=== PATIENT | male | born 1935 | race Asian ===

== ENCOUNTER → 2017-03-26 | Outpatient (CLI) | payer MEDICARE, MEDICAID ==
--- NOTE | 2017-03-26 11:31 | RADIOLOGY REPORT (SQ) ---
EXAM DESCRIPTION: CHEST PA/LAT COMPLETED DATE/TIME: 03/26/2017 11:05 am REASON FOR STUDY: HTN COMPARISON: 12/04/2015, 11/16/2010 NUMBER OF VIEWS: Two view. TECHNIQUE: Frontal and lateral radiographic views of the chest acquired. LIMITATIONS: None. FINDINGS: LUNGS AND PLEURA: Minimal haziness lateral aspect of the left lung base on the PA project ion. Not identified on the lateral. Compromised by poor aspect effort. Cannot exclude minimal infi ltrate. MEDIASTINUM AND HILAR STRUCTURES: No masses or contour abnormalities. HEART AND VASCULATURE: Heart normal size. No evidence for failure. BONY STRUCTURES: No acute findings. HARDWARE: None. OTHER: No other significant finding. IMPRESSION: Minimal haziness lateral aspect the left base on the PA projection. See above shukri hong. Repeat PA hand deeper inspiration may be helpful if clinically indicated. TECHNICAL DOCUMENTATION: JOB ID: [id number] [employer]- All Rights Reserved
== END ==
LOC: RAD 10:40
PROVIDERS: ATTEND Internal Medicine Nephrology
DX: I13.10 Hypertensive heart and chronic kidney disease without heart failure, with stage 1 through stage 4 chronic kidney disease, or unspecified chronic kidney disease (principal); N18.3 Chronic kidney disease, stage 3 (moderate); M10.9 Gout, unspecified
CPT/HCPCS: 71020

== ENCOUNTER → 2017-04-04 | Outpatient (CLI) | payer MEDICARE, MEDICAID ==
--- NOTE | 2017-04-04 10:21 | RADIOLOGY REPORT (SQ) ---
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 TECHNIQUE: Realtime and static grayscale images acquired. Selected color Doppler, velocities and spe ctral images recorded. LIMITATIONS: None. FINDINGS: RIGHT KIDNEY: RENAL ARTERY VELOCITIES: 59 cm/sec. Segmental artery velocity 28 cm/sec. RENAL VEIN: Color doppler flow present, patent. VELOCITY RATIO: 0.52. Normal waveforms. KIDNEY: 9 cm. Increased cortical echogenicity. 1.4 cm cyst. LEFT KIDNEY: RENAL ARTERY VELOCITIES: 34 cm/sec. Segmental artery velocity 39 cm/sec. RENAL VEIN: Color doppler flow present, patent. VELOCITY RATIO: 0.3. Normal waveforms. KIDNEY: 9.4 cm. Increased cortical echogenicity. 1.7 cm cyst. BLADDER: Normal. OTHER: No other significant finding. IMPRESSION: 1. NO DOPPLER EVIDENCE OF HEMODYNAMICALLY SIGNIFICANT RENAL ARTERY STENOSIS. 2. INCREASED CORTICAL ECHOGENICITY OF THE KIDNEYS CONSISTENT WITH CHRONIC RENAL DISEASE. CORTICAL CY STS IN BOTH KIDNEYS. COMMENT: NORMAL RENAL ARTERY/AORTA VELOCITY RATIO IS LESS THAN OR EQUAL TO 3.5. TECHNICAL DOCUMENTATION: JOB ID: [id number]- All Rights Reserved
[2017-04-04 10:43] LABS: ANION GAP 11 (5-19); BLOOD UREA NITROGEN 30 mg/dL (7-20); CALCIUM 10.2 mg/dL (8.4-10.2); CARBON DIOXIDE 33 mmol/L (22-30); CHLORIDE 95 mmol/L (98-107); CREATININE RESULT 1.57 mg/dL (0.52-1.25); GLUCOSE 144 mg/dL (75-110); MAGNESIUM 2.1 mg/dL (1.6-2.3); POTASSIUM 4.6 mmol/L (3.6-5.0); SODIUM 139.1 mmol/L (137-145)
== END ==
LOC: RAD 09:23
PROVIDERS: ATTEND Internal Medicine Nephrology
DX: I12.9 Hypertensive chronic kidney disease with stage 1 through stage 4 chronic kidney disease, or unspecified chronic kidney disease (principal); N18.3 Chronic kidney disease, stage 3 (moderate); I50.9 Heart failure, unspecified; E11.9 Type 2 diabetes mellitus without complications; M10.00 Idiopathic gout, unspecified site
CPT/HCPCS: 36415; 80048; 83735; 93976

== ENCOUNTER → 2017-12-25 | Outpatient (CLI) | payer MEDICARE, MEDICAID ==
--- NOTE | 2017-12-25 13:52 | RADIOLOGY REPORT (SQ) ---
EXAM DESCRIPTION: CHEST PA/LATERAL COMPLETED DATE/TIME: 12/25/2017 12:27 pm REASON FOR STUDY: SOB COMPARISON: Two-view chest 03/16/2017, 12/04/2015, 11/16/2010 EXAM PARAMETERS: NUMBER OF VIEWS: two views TECHNIQUE: Digital Frontal and Lateral radiographic views of the chest acquired. RADIATION DOSE: NA LIMITATIONS: none FINDINGS: LUNGS AND PLEURA: Unchanged epicardial fat pad right medial cardiophrenic angle. No acute infiltrates. No pleural effusion. No pneumothorax. MEDIASTINUM AND HILAR STRUCTURES: No masses or contour abnormalities. HEART AND VASCULAR STRUCTURES: Heart normal size. No evidence for failure. BONES: No acute findings. HARDWARE: None in the chest. OTHER: No other significant finding. IMPRESSION: No acute findings TECHNICAL DOCUMENTATION: JOB ID: [id number] [employer]- All Rights Reserved Reading location - IP/workstation name: [email or web address]
== END ==
LOC: OD 11:11
PROVIDERS: ATTEND Internal Medicine Nephrology
DX: E11.22 Type 2 diabetes mellitus with diabetic chronic kidney disease (principal); I13.0 Hypertensive heart and chronic kidney disease with heart failure and stage 1 through stage 4 chronic kidney disease, or unspecified chronic kidney disease; N18.3 Chronic kidney disease, stage 3 (moderate); I50.9 Heart failure, unspecified; M10.00 Idiopathic gout, unspecified site
CPT/HCPCS: 71046

== ENCOUNTER 2018-08-14 08:33 | Inpatient (IN) | payer MEDICARE, MEDICAID ==
[2018-08-14 09:07] LABS: ABSOLUTE BASOPHILS # (AUTO) 0.1 10^3/uL (0.0-0.2); ABSOLUTE MONOCYTES (AUTO) 0.7 10^3/uL (0.1-1.4); ABSOLUTE NEUT (AUTO) 12.2 10^3/uL (1.7-8.2); BASOPHILS % (AUTO) 0.5 % (0-2); HEMATOCRIT 31.6 % (37.9-51.0); HEMOGLOBIN 10.5 g/dL (13.5-17.0); LYMPHOCYTES % (AUTO) 13.2 % (13-45); MEAN CORPUSCULAR HEMOGLOBIN 32.2 pg (27.0-33.4); MEAN CORPUSCULAR HGB CONC 33.1 g/dL (32.0-36.0); MEAN CORPUSCULAR VOLUME 97 fl (80-97); MONOCYTES % (AUTO) 4.8 % (3-13); PLATELET COUNT 250 10^3/uL (150-450); RED BLOOD COUNT 3.26 10^6/uL (4.35-5.55); RED CELL DISTRIBUTION WIDTH 12.6 % (11.5-14.0); SEGMENTED NEUTROPHILS % (AUTO) 81.5 % (42-78); TOTAL CELLS COUNTED % (AUTO) 100 %
[2018-08-14 09:18] LABS: ALANINE AMINOTRANSFERASE 19 U/L (21-72); ALBUMIN 3.6 g/dL (3.5-5.0); ALKALINE PHOSPHATASE 74 U/L (38-126); ANION GAP 14 (5-19); ASPARTATE AMINO TRANSFERASE 26 U/L (17-59); BILIRUBIN,DIRECT 0.1 mg/dL (0.0-0.4); BILIRUBIN,TOTAL 0.4 mg/dL (0.2-1.3); BLOOD UREA NITROGEN 96 mg/dL (7-20); CALCIUM 9.2 mg/dL (8.4-10.2); CARBON DIOXIDE 21 mmol/L (22-30); CHLORIDE 100 mmol/L (98-107); POTASSIUM 5.7 mmol/L (3.6-5.0); SODIUM 135.2 mmol/L (137-145); TOTAL PROTEIN 6.1 g/dL (6.3-8.2)
[2018-08-14 09:46] LABS: GLUCOSE 556 mg/dL (75-110)
--- NOTE | 2018-08-14 09:51 | ER Document Report ---
ED Blood Sugar Problem - General Chief Complaint: High Blood Sugar Stated Complaint: BLOOD SUGAR ISSUES Time Seen by Provider: 08/14/18 09:43 Mode of Arrival: Medic Information source: Patient, Relative Notes: Patient is an 83-year-old male who presents to the emergency department via EMS for complaints of shortness of breath and elevated blood glucose at home. Patient's daughter is at bedside who is his caregiver who states that over the last 2 days patient has had elevated blood glucose levels. She states his glucose levels usually run in the 1-200 range. She states that last night his glucose level was 300. This morning his glucose was almost 500 and he began having blood in his stools that she describes as a dark as well as a episode of emesis with dark red blood in it as well. Prior to this patient had not been ill and had not been running any fevers or complaining of any abdominal pain. She does report that patient seems to have some abdominal distention. Patient has past medical history of insulin-dependent diabetes, chronic kidney disease and hypertension. TRAVEL OUTSIDE OF THE [place] IN LAST 30 DAYS: No - Related Data Allergies/Adverse Reactions: Penicillins Allergy (Severe, Verified 08/14/18 08:49) Anaphylaxis Past Medical History - General Information source: Patient - Social History Smoking Status: Never Smoker Chew tobacco use (# tins/day): No Frequency of alcohol use: None Drug Abuse: None Family History: Reviewed & Not Pertinent Patient has suicidal ideation: No Patient has homicidal ideation: No - Past Medical History Cardiac Medical History: Reports: Hx Congestive Heart Failure, Hx Coronary Artery Disease, Hx Hypercholesterolemia, Hx Hypertension Denies: Hx Heart Attack Pulmonary Medical History: Denies: Hx Asthma, Hx Bronchitis, Hx COPD, Hx Pneumonia, Hx Tuberculosis Neurological Medical History: Denies: Hx Cerebrovascular Accident, Hx Seizures Endocrine Medical History: Reports: Hx Diabetes Mellitus Type 2 Renal/ Medical History: Reports: Hx Renal Insufficiency. Denies: Hx Peritoneal Dialysis Musculoskeletal Medical History: 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, and fingers, Reports Hx Gout Psychiatric Medical History: Denies: Hx Depression - Immunizations Hx Diphtheria, Pertussis, Tetanus Vaccination: Yes Hx Pneumococcal Vaccination: 05/08/13 Review of Systems - Review of Systems Constitutional: Other - Polydipsia EENT: No symptoms reported Cardiovascular: No symptoms reported Respiratory: Short of breath Gastrointestinal: Abdomen distended, Diarrhea, Nausea, Vomiting, Blood in vomit, Black stools Genitourinary: No symptoms reported Male Genitourinary: No symptoms reported Musculoskeletal: No symptoms reported Skin: No symptoms reported Hematologic/Lymphatic: No symptoms reported Neurological/Psychological: No symptoms reported Physical Exam - Vital signs Vitals: Temp Resp Pulse Ox 97.8 F 18 97 08/14/18 08:44 08/14/18 08:44 08/14/18 08:44 - Notes Notes: PHYSICAL EXAMINATION: GENERAL: Well-appearing, well-nourished and in no acute distress. HEAD: Atraumatic, normocephalic. EYES: Pupils equal round and reactive to light, extraocular movements intact, sclera anicteric, conjunctiva are normal. ENT: Nares patent, oropharynx clear without exudates. Moist mucous membranes. NECK: Normal range of motion, supple without lymphadenopathy LUNGS: Breath sounds clear to auscultation bilaterally and equal. No wheezes rales or rhonchi. HEART: Regular rate and rhythm without murmurs ABDOMEN: Soft, nontender, mildly distended abdomen. No guarding, no rebound. No masses appreciated. Musculoskeletal: Normal range of motion, no pitting or edema. No cyanosis. NEUROLOGICAL: Cranial nerves grossly intact. Normal speech. Normal sensory, motor exams PSYCH: Normal mood, normal affect. SKIN: Warm, Dry, normal turgor, no rashes or lesions noted. Course - Re-evaluation Re-evalutation: Patient presented to the emergency room with complaints of shortness of breath. No shortness of breath noted, patient normotensive, no tachycardia, no hypoxia and no tachypnea noted. Patient is alert, oriented and in no acute distress. Labs were obtained. Initial blood glucose glucose was 556 however no evidence of DKA with a normal anion gap. VBG was also obtained which is within normal limits. Patient does have elevated BUN and creatinine, creatinine is 2.47. Patient does have history of stage III kidney disease however this creatinine is elevated for patient. CBC reveals a white blood count of 15,000 without any evidence of bandemia. Likely secondary to multiple episodes of vomiting and diarrhea. Acute abdominal series was obtained to evaluate for cause of shortness of breath as well as to evaluate for any perforation or retained stool. Acute abdominal series was found to be within normal limits with no acute findings. Patient was started on a Protonix bolus of 80 mg followed by Protonix drip of 8 mg/h. He was also given 5 mg of IV insulin. He did have a elevated potassium level of 5.7, EKG was obtained and is without peaked T waves. Patient has not had any episodes of nausea, vomiting or diarrhea while in the emergency department he is Hemoccult positive. This test was performed at the bedside and appeared to be melena. I did discuss this case with my attending physician, Dr. Bob. Patient continues to be stable while in the emergency department and all his vital signs have been within normal ranges. I did call the hospitalist to inquire about admission, Dr. Herrera accepts patient for admission. Patient and family members were updated and are in agreement with the plan of care. - Vital Signs Vital signs: Temp Pulse Resp BP Pulse Ox 97.8 F 21 H 125/57 L 97 08/14/18 08:44 08/14/18 19:06 08/14/18 19:06 08/14/18 19:06 - Laboratory Result Diagrams: 08/14/18 08:07 08/14/18 20:35 Laboratory results interpreted by me: 08/14/18 08/14/18 08/14/18 08:07 08:07 11:44 WBC 15.0 H RBC 3.26 L Hgb 10.5 L Hct 31.6 L Seg Neutrophils % 81.5 H Absolute Neutrophils 12.2 H Sodium 135.2 L Potassium 5.7 H Carbon Dioxide 21 L BUN 96 H Creatinine 2.47 H Est GFR ( Amer) 30 L Est GFR (Non-Af Amer) 25 L Glucose 556 H* POC Glucose ALT 19 L Total Protein 6.1 L Urine Glucose (UA) >=500 H 08/14/18 12:04 WBC RBC Hgb Hct Seg Neutrophils % Absolute Neutrophils Sodium Potassium Carbon Dioxide BUN Creatinine Est GFR ( Amer) Est GFR (Non-Af Amer) Glucose POC Glucose 484 H* ALT Total Protein Urine Glucose (UA) Discharge - Discharge Clinical Impression: Hyperglycemia, Melena, Hyperkalemia, Elevated serum creatinine Hematemesis/vomiting blood Qualifiers: Nausea presence: unspecified Qualified Code(s): K92.0 - Hematemesis Condition: Stable Disposition: ADMITTED INPATIENT Admitting Provider: Kandaceist - lizette Unit Admitted: Telemetry
[2018-08-14] MEDS ORDERED: NORMAL SALINE 1000 ML 1,000 ML IV ONE ×2 (10:25→10:38)
[2018-08-14] MEDS ORDERED: PANTOPRAZOLE SODIUM 40 MG VIAL IV ONE (10:37)
[2018-08-14] MEDS ORDERED: PANTOPRAZOLE SODIUM 40 MG VIAL IV PRN (10:37)
[2018-08-14] MEDS ORDERED: INSULIN REG, HUMAN 100 UNIT/ML 3 ML VIAL (PYX) IV ONE (10:37)
[2018-08-14 11:09] LABS: VENOUS BLOOD BASE EXCESS -5.2 mmol/L; VENOUS BLOOD HCO3 20.4 mmol/L (20-32); VENOUS BLOOD PH 7.33 (7.30-7.42)
--- NOTE | 2018-08-14 11:11 | EKG REPORT ---
SEVERITY:- BORDERLINE ECG - SINUS TACHYCARDIA VENTRICULAR PREMATURE COMPLEX BORDERLINE PROLONGED QT INTERVAL : Confirmed by: Rajinder Ritter 14-Aug-2018 11:10:46
--- NOTE | 2018-08-14 11:27 | RADIOLOGY REPORT (SQ) ---
EXAM DESCRIPTION: ACUTE ABDOMEN SERIES COMPLETED DATE/TIME: 08/14/2018 11:00 am REASON FOR STUDY: shortness of breath, abd distention COMPARISON: Chest films 12/25/2017, 03/26/2017 CT abdomen pelvis 12/29/2013 NUMBER OF VIEWS: Three views. TECHNIQUE: Frontal chest, supine abdomen and upright abdomen radiographic images acquired. LIMITATIONS: None. FINDINGS: CHEST: Lungs clear of infiltrates. Cardiac silhouette size, elzbieta unremarkable. FREE AIR: None. No abnormal gas collections. BOWEL GAS PATTERN: Nonobstructive pattern. No dilated loops or air fluid levels. CALCIFICATIONS: No suspicious calcifications. HARDWARE: None in the abdomen. SOFT TISSUES: No gross mass or suggestion of organomegaly. BONES: No acute fracture. No worrisome bone lesions. OTHER: No other significant finding. IMPRESSION: NO RADIOGRAPHIC EVIDENCE FOR ACUTE ABDOMINAL DISEASE. TECHNICAL DOCUMENTATION: JOB ID: [id number] [employer]- All Rights Reserved Reading location - IP/workstation name: [email or web address]
[2018-08-14 12:03] LABS: APPEARANCE,URINE CLEAR; BILIRUBIN,URINE NEGATIVE (NEGATIVE); COLOR,URINE STRAW; GLUCOSE, URINE >=500 mg/dL (NEGATIVE); KETONES,URINE NEGATIVE (NEGATIVE); LEUKOCYTE ESTERASE,URINE NEGATIVE (NEGATIVE); NITRITE,URINE NEGATIVE (NEGATIVE); PROTEIN,URINE NEGATIVE (NEGATIVE); URINE SPECIFIC GRAVITY 1.015; UROBILINOGEN,URINE NEGATIVE mg/dL (<2.0)
[2018-08-14] MEDS ORDERED: DEXTROSE 50%-WATER 25 GM/50 ML DISP.SYRIN IV PRN ×4 (14:03→14:29)
[2018-08-14] MEDS ORDERED: NORMAL SALINE 100 ML with INSULIN REGULAR, HUMAN 100 UNIT IV PRN ×2 (14:03)
[2018-08-14] MEDS ORDERED: GLUCAGON,HUMAN RECOMB 1 MG INJ IM PRN (14:03)
[2018-08-14] MEDS ORDERED: DEXTROSE 40% GEL 15 GM TUBE PO PRN ×4 (14:03→14:29)
[2018-08-14] MEDS ORDERED: ALBUTEROL SULFATE 0.083% NEB 2.5 MG/3 ML AMPUL NEB PRN (14:05)
[2018-08-14] MEDS ORDERED: NORMAL SALINE 1000 ML 1,000 ML IV PRN (14:29)
[2018-08-14] MEDS ORDERED: ACETAMINOPHEN 325 MG TABLET PO PRN (14:29)
[2018-08-14] MEDS ORDERED: ONDANSETRON HCL INJ/PF 4 MG/2 ML SDV IV PRN (14:29)
[2018-08-14] MEDS ORDERED: GLUCAGON,HUMAN RECOMB 1 MG INJ SUBCUT PRN (14:29)
[2018-08-14] MEDS ORDERED: CALCIUM GLUCONATE 1000 MG/10 ML INJ IV ONE (14:30)
[2018-08-14] MEDS: IPRATROPIUM/ALBUTEROL 0.5-2.5 MG/3 ML AMPUL NEB PRN ×2 (14:59→15:53)
[2018-08-14 15:21] LABS: INTERNATIONAL RATION (INR) 1.01; PROTHROMBIN TIME 13.8 SEC (11.4-15.4)
[2018-08-14] MEDS ORDERED: PATIROMER 8.4 GM SUSP PACKET PO SCH (17:00)
[2018-08-14] MEDS ORDERED: ALPRAZOLAM 0.25 MG TABLET PO PRN (18:32)
[2018-08-14] MEDS ORDERED: HYDRALAZINE HCL INJ/PF 20 MG/1 ML SDV IV PRN (18:34)
--- NOTE | 2018-08-14 18:50 | PDOC H&P ---
History of Present Illness Admission Date/PCP: 08/14/18 12:21 RICCI LAM MD History of Present Illness: JACKIE ESCOBEDO is a 83 year old male with a history of hypertension, diabetes, CHF, CKD, presented to ED complaining of sore breath, nausea, hematemesis, and melena. Patient said he was doing fine yesterday but overnight he was not feeling very well and has checked checked his blood pressure which was low and checked his blood glucose level which was 387. 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 He denies any chest pain, abdominal pain, urinary symptoms, recent travel, sick contacts. Today he ate at [employer] where he frequently goes. ED his blood glucose level was 556, anion gap within normal limits, creatinine 2.47, WBC of 15,000 without any bandemia. A per HPI. As per HPI as per HPI KUB was done without any radiographic evidence of acute disease. Past Medical History Cardiac Medical History: Reports: Congestive Heart Failure, Coronary Artery Disease, Hyperlipidema, Hypertension Denies: Myocardial Infarction Pulmonary Medical History: Denies: Asthma, Bronchitis, Chronic Obstructive Pulmonary Disease (COPD), Pneumonia, Tuberculosis Neurological Medical History: Denies: Seizures Endocrine Medical History: Reports: Diabetes Mellitus Type 2 Musculoskeltal Medical History: Reports: Arthritis - B/L hands, and fingers, Gout Psychiatric Medical History: Denies: Depression Hematology: Denies: Anemia Social History Smoking Status: Never Smoker Frequency of Alcohol Use: None Hx Recreational Drug Use: No Hx Prescription Drug Abuse: No Family History Family History: Reviewed & Not Pertinent Parental Family History Reviewed: Yes Children Family History Reviewed: Yes Sibling(s) Family History Reviewed.: Yes Medication/Allergy Home Medications: Alprazolam [Xanax 0.25 mg Tablet] 0.25 mg PO Q12HP PRN 08/14/18 Chlorthalidone [Hygroton 25 mg Tablet] 25 mg PO MOWEFR@1000 08/14/18 Cholecalciferol (Vitamin D3) [D3-2000] 2,000 unit PO DAILY 08/14/18 Clonidine HCl [Catapres 0.1 mg Tablet] 0.1 mg PO Q8 08/14/18 Febuxostat [Uloric 40 mg Tablet] 40 mg PO DAILY 08/14/18 Fexofenadine HCl [Allergy Relief] 180 mg PO DAILY 08/14/18 Flunisolide [Nasarel] 2 spray NASL BID 08/14/18 Furosemide [Lasix 40 mg Tablet] 40 mg PO DAILY 08/14/18 Glimepiride [Amaryl] 2 mg PO QAM 08/14/18 Hydrocortisone/Pramoxine [Proctofoam-Hc 1%-1% Foam] 1 applic VT DAILYP PRN 08/14/18 Insulin Degludec [Tresiba Flextouch U-200] 20 unit SQ QHS 08/14/18 Isosorbide Mononitrate [Imdur 30 mg Tablet.er] 30 mg PO DAILY 08/14/18 Levothyroxine Sodium [Synthroid 0.025 mg Tablet] 0.025 mg PO Q6AM 08/14/18 Lisinopril [Prinivil 40 mg Tablet] 40 mg PO Q12 08/14/18 Multivitamin [Tab-A-Marlys (Multiple Vitamin) Tablet] 1 tab PO DAILY 08/14/18 Mupirocin [Bactroban 2% Ointment 22 gm] 1 applic TOP TID 08/14/18 Potassium Chloride [Klor-Con 10 Meq Capsule ER] 10 meq PO DAILY 08/14/18 Simvastatin [Zocor 20 mg Tablet] 20 mg PO QHS 08/14/18 Sitagliptin Phosphate [Januvia] 100 mg PO DAILY 08/14/18 Spironolactone [Aldactone 25 mg Tablet] 25 mg PO DAILY 08/14/18 Allergies/Adverse Reactions: Penicillins Allergy (Severe, Verified 08/14/18 08:49) Anaphylaxis Review of Systems Review of Systems: Per HPI Physical Exam Vital Signs: Temp Pulse Resp BP Pulse Ox 97.8 F 21 H 127/50 H 98 08/14/18 08:44 08/14/18 13:31 08/14/18 13:31 08/14/18 13:31 Intake & Output 08/13/18 08/14/18 08/15/18 06:59 06:59 06:59 Intake Total 1007 Output Total 500 Balance 507 Weight 68.039 kg General appearance: PRESENT: no acute distress, well-developed, well-nourished Respiratory exam: PRESENT: clear to auscultation choco. ABSENT: rales, rhonchi, wheezes Cardiovascular exam: PRESENT: RRR. ABSENT: diastolic murmur, rubs, systolic murmur GI/Abdominal exam: PRESENT: normal bowel sounds, soft. ABSENT: distended, guarding, mass, organolmegaly, rebound, tenderness Extremities exam: PRESENT: full ROM. ABSENT: calf tenderness, clubbing, pedal edema Neurological exam: PRESENT: alert, awake, oriented to person, oriented to place, oriented to time, oriented to situation, CN II-XII grossly intact. ABSENT: motor sensory deficit Results Laboratory Results: 08/14/18 08:07 08/14/18 08:07 08/14/18 08/14/18 08/14/18 08:07 08:07 10:48 WBC 15.0 H RBC 3.26 L Hgb 10.5 L Hct 31.6 L MCV 97 MCH 32.2 MCHC 33.1 RDW 12.6 Plt Count 250 Seg Neutrophils % 81.5 H Lymphocytes % 13.2 Monocytes % 4.8 Eosinophils % 0.0 Basophils % 0.5 Absolute Neutrophils 12.2 H Absolute Lymphocytes 2.0 Absolute Monocytes 0.7 Absolute Eosinophils 0.0 Absolute Basophils 0.1 VBG pH 7.33 VBG pCO2 40.0 VBG HCO3 20.4 VBG Base Excess -5.2 Sodium 135.2 L Potassium 5.7 H Chloride 100 Carbon Dioxide 21 L Anion Gap 14 BUN 96 H Creatinine 2.47 H Est GFR ( Amer) 30 L Est GFR (Non-Af Amer) 25 L Glucose 556 H* Calcium 9.2 Total Bilirubin 0.4 AST 26 ALT 19 L Alkaline Phosphatase 74 Total Protein 6.1 L Albumin 3.6 Urine Color Urine Appearance Urine pH Ur Specific [place] Urine Protein Urine Glucose (UA) Urine Ketones Urine Blood Urine Nitrite Ur Leukocyte Esterase Urine WBC (Auto) Urine RBC (Auto) Blood Type Antibody Screen 08/14/18 08/14/18 10:48 11:44 WBC RBC Hgb Hct MCV MCH MCHC RDW Plt Count Seg Neutrophils % Lymphocytes % Monocytes % Eosinophils % Basophils % Absolute Neutrophils Absolute Lymphocytes Absolute Monocytes Absolute Eosinophils Absolute Basophils VBG pH VBG pCO2 VBG HCO3 VBG Base Excess Sodium Potassium Chloride Carbon Dioxide Anion Gap BUN Creatinine Est GFR ( Amer) Est GFR (Non-Af Amer) Glucose Calcium Total Bilirubin AST ALT Alkaline Phosphatase Total Protein Albumin Urine Color STRAW Urine Appearance CLEAR Urine pH 5.0 Ur Specific [place] 1.015 Urine Protein NEGATIVE Urine Glucose (UA) >=500 H Urine Ketones NEGATIVE Urine Blood NEGATIVE Urine Nitrite NEGATIVE Ur Leukocyte Esterase NEGATIVE Urine WBC (Auto) 1 Urine RBC (Auto) 0 Blood Type O POSITIVE Antibody Screen NEGATIVE Impressions: Acute Abdomen Series 08/14/18 10:08 IMPRESSION: NO RADIOGRAPHIC EVIDENCE FOR ACUTE ABDOMINAL DISEASE. Assessment & Plan - Diagnosis (1) Hyperglycemia Is this a current diagnosis for this admission?: Yes Plan: Will start on insulin drip addition to long-acting insulin, sliding scale, pre- meal insulin. Diabetic diet. (2) GI bleed Is this a current diagnosis for this admission?: Yes Plan: Likely upper GI bleed. Monitor H&H. Consult for possible upper and lower GI endoscopy. N.p.o. after midnight. Volume resuscitation. Monitor volume status (3) Diabetes Is this a current diagnosis for this admission?: Yes Plan: Reticulocyte diet, long-acting insulin, pre-meal insulin, sliding scale insulin, adjust dosage as needed. (4) HTN (hypertension) Is this a current diagnosis for this admission?: Yes Plan: Restart home meds. Lisinopril and Lasix due to worsening kidney function. Hydralazine as needed. (5) Acute kidney injury superimposed on CKD Is this a current diagnosis for this admission?: Yes Plan: Likely due to intravascular volume depletion caused by nausea vomiting and diarrhea. Her volume status, monitor electrolytes. Patient has history of CKD stage IV seen by Dr. Biswas as outpatient. Will consult Dr. Biswas. Renal ultrasound. (6) Hyperkalemia Is this a current diagnosis for this admission?: Yes Plan: Started on hyperkalemia protocol.
[2018-08-14] MEDS: NORMAL SALINE 1000 ML 1,000 ML IV PRN (20:48)
[2018-08-14 21:12] LABS: ANION GAP 12 (5-19); BLOOD UREA NITROGEN 101 mg/dL (7-20); CALCIUM 9.6 mg/dL (8.4-10.2); CARBON DIOXIDE 21 mmol/L (22-30); CHLORIDE 107 mmol/L (98-107); GLUCOSE 317 mg/dL (75-110); SODIUM 140.1 mmol/L (137-145)
[2018-08-14 21:22] LABS: POTASSIUM 4.7 mmol/L (3.6-5.0)
[2018-08-15] MEDS: CLONIDINE HCL 0.1 MG TABLET PO SCH ×4 (00:24→21:43)
[2018-08-15] MEDS: FAMOTIDINE 20 MG TABLET PO SCH ×3 (00:25→21:58)
[2018-08-15] MEDS: SIMVASTATIN 10 MG TABLET PO SCH ×2 (00:25→21:58)
[2018-08-15] MEDS ORDERED: DEXTROSE 50%-WATER SYRINGE 12.5 GM/25 ML DOSE IV PRN (02:00)
[2018-08-15] MEDS ORDERED: DEXTROSE 40% GEL 15 GM TUBE X 2 PO PRN (02:00)
[2018-08-15] MEDS ORDERED: DEXTROSE 40% GEL 15 GM TUBE PO PRN ×3 (02:00→16:03)
[2018-08-15] MEDS ORDERED: GLUCAGON,HUMAN RECOMB 1 MG INJ IM PRN ×2 (02:00→16:03)
[2018-08-15] MEDS ORDERED: DEXTROSE 50%-WATER SYRINGE 25 GM/50 ML DOSE IV PRN (02:00)
[2018-08-15] MEDS: NORMAL SALINE 1000 ML 1,000 ML IV PRN ×2 (05:23→11:44)
[2018-08-15] MEDS: LEVOTHYROXINE SODIUM 0.025 MG TABLET PO SCH (05:23)
[2018-08-15 05:45] LABS: ABSOLUTE BASOPHILS # (AUTO) 0.1 10^3/uL (0.0-0.2); ABSOLUTE EOSINOPHILS # (AUTO) 0.2 10^3/uL (0.0-0.6); ABSOLUTE LYMPHOCYTES (AUTO) 2.8 10^3/uL (0.5-4.7); ABSOLUTE MONOCYTES (AUTO) 1.3 10^3/uL (0.1-1.4); ABSOLUTE NEUT (AUTO) 8.9 10^3/uL (1.7-8.2); BASOPHILS % (AUTO) 0.5 % (0-2); EOSINOPHILS % (AUTO) 1.5 % (0-6); HEMATOCRIT 23.4 % (37.9-51.0); LYMPHOCYTES % (AUTO) 21.3 % (13-45); MEAN CORPUSCULAR HEMOGLOBIN 32.5 pg (27.0-33.4); MEAN CORPUSCULAR HGB CONC 34.4 g/dL (32.0-36.0); MEAN CORPUSCULAR VOLUME 95 fl (80-97); MONOCYTES % (AUTO) 9.7 % (3-13); PLATELET COUNT 185 10^3/uL (150-450); RED BLOOD COUNT 2.48 10^6/uL (4.35-5.55); RED CELL DISTRIBUTION WIDTH 12.6 % (11.5-14.0); TOTAL CELLS COUNTED % (AUTO) 100 %; WHITE BLOOD COUNT 13.3 10^3/uL (4.0-10.5)
[2018-08-15 05:48] LABS: HEMOGLOBIN 8.1 g/dL (13.5-17.0)
[2018-08-15 05:58] LABS: ALANINE AMINOTRANSFERASE 17 U/L (21-72); ALBUMIN 2.8 g/dL (3.5-5.0); ALKALINE PHOSPHATASE 39 U/L (38-126); ANION GAP 7 (5-19); ASPARTATE AMINO TRANSFERASE 15 U/L (17-59); BILIRUBIN,DIRECT 0.1 mg/dL (0.0-0.4); BILIRUBIN,TOTAL 0.4 mg/dL (0.2-1.3); BLOOD UREA NITROGEN 91 mg/dL (7-20); CALCIUM 8.9 mg/dL (8.4-10.2); CARBON DIOXIDE 23 mmol/L (22-30); CHLORIDE 113 mmol/L (98-107); GLUCOSE 138 mg/dL (75-110); POTASSIUM 4.2 mmol/L (3.6-5.0); SODIUM 142.8 mmol/L (137-145); TOTAL PROTEIN 5.1 g/dL (6.3-8.2)
[2018-08-15] MEDS: INSULIN LISPRO 100 UNIT/ML 3 ML VIAL SUBCUT SCH ×3 (08:17→16:54)
[2018-08-15] MEDS ORDERED: SITAGLIPTIN PHOSPHATE 50 MG TABLET PO SCH (10:00)
[2018-08-15] MEDS ORDERED: (PENDING PHARMACY ID) (Cholecalciferol (Vitamin D3) [D3-2000] 2,000 UNIT) PO SCH (10:00)
[2018-08-15] MEDS ORDERED: ISOSORBIDE MONONITRATE 30 MG TAB.ER.24H PO SCH (10:00)
[2018-08-15] MEDS: FEBUXOSTAT 40 MG TABLET PO SCH (11:58)
[2018-08-15] MEDS: CHOLECALCIFEROL (D3) 1,000 UNIT TABLET PO SCH (11:59)
[2018-08-15] MEDS: SITAGLIPTIN PHOSPHATE 50 MG TABLET PO SCH (13:19)
[2018-08-15 15:25] LABS: ABSOLUTE BASOPHILS # (AUTO) 0.1 10^3/uL (0.0-0.2); ABSOLUTE EOSINOPHILS # (AUTO) 0.4 10^3/uL (0.0-0.6); ABSOLUTE LYMPHOCYTES (AUTO) 2.6 10^3/uL (0.5-4.7); ABSOLUTE NEUT (AUTO) 8.4 10^3/uL (1.7-8.2); BASOPHILS % (AUTO) 0.7 % (0-2); EOSINOPHILS % (AUTO) 3.5 % (0-6); HEMATOCRIT 19.9 % (37.9-51.0); MEAN CORPUSCULAR HEMOGLOBIN 32.1 pg (27.0-33.4); MEAN CORPUSCULAR VOLUME 94 fl (80-97); MONOCYTES % (AUTO) 7.7 % (3-13); PLATELET COUNT 193 10^3/uL (150-450); RED BLOOD COUNT 2.11 10^6/uL (4.35-5.55); RED CELL DISTRIBUTION WIDTH 12.7 % (11.5-14.0); SEGMENTED NEUTROPHILS % (AUTO) 67.1 % (42-78); TOTAL CELLS COUNTED % (AUTO) 100 %; WHITE BLOOD COUNT 12.5 10^3/uL (4.0-10.5)
[2018-08-15 15:29] LABS: HEMOGLOBIN 6.8 g/dL (13.5-17.0)
[2018-08-15] MEDS ORDERED: DEXTROSE 50%-WATER 25 GM/50 ML DISP.SYRIN IV PRN ×2 (16:03)
--- NOTE | 2018-08-15 18:48 | PDOC PROGRESS REPORT ---
Subjective Progress Note for:: 08/15/18 Subjective:: Events overnight. Patient has been n.p.o. for possible EGD/colonoscopy however it was delayed until Saturday. Patient has not had any recurrence of his hematemesis or melena however his hemoglobin dropped to less than 7 and he was transfused 2 units. Denies any fever, chills, nausea, vomiting, diarrhea, constipation, abdominal pain or any urinary symptoms. Reason For Visit: GI BLEED Physical Exam Vital Signs: Temp Pulse Resp BP Pulse Ox 98.0 F 104 H 16 97/42 L 81 L 08/15/18 16:50 08/15/18 16:50 08/15/18 16:50 08/15/18 16:50 08/15/18 16:50 Intake & Output 08/14/18 08/15/18 08/16/18 06:59 06:59 06:59 Intake Total 2200 1081 Output Total 800 Balance 1400 1081 Weight 74.6 kg General appearance: PRESENT: no acute distress, well-developed, well-nourished Head exam: PRESENT: atraumatic, normocephalic Respiratory exam: PRESENT: clear to auscultation choco. ABSENT: rales, rhonchi, wheezes Cardiovascular exam: PRESENT: RRR. ABSENT: diastolic murmur, rubs, systolic murmur GI/Abdominal exam: PRESENT: normal bowel sounds, soft. ABSENT: distended, guarding, mass, organolmegaly, rebound, tenderness Extremities exam: PRESENT: full ROM. ABSENT: calf tenderness, clubbing, pedal edema Neurological exam: PRESENT: alert, awake, oriented to person, oriented to place, oriented to time, oriented to situation, CN II-XII grossly intact. ABSENT: motor sensory deficit Results Laboratory Results: 08/15/18 14:35 08/15/18 05:02 08/14/18 08/14/18 08/15/18 10:48 20:35 05:02 WBC 13.3 H RBC 2.48 L Hgb 8.1 L D Hct 23.4 L MCV 95 MCH 32.5 MCHC 34.4 RDW 12.6 Plt Count 185 Seg Neutrophils % 67.0 Lymphocytes % 21.3 Monocytes % 9.7 Eosinophils % 1.5 Basophils % 0.5 Absolute Neutrophils 8.9 H Absolute Lymphocytes 2.8 Absolute Monocytes 1.3 Absolute Eosinophils 0.2 Absolute Basophils 0.1 Sodium 140.1 Potassium 4.7 D Chloride 107 Carbon Dioxide 21 L Anion Gap 12 BUN 101 H Creatinine 2.28 H Est GFR ( Amer) 33 L Est GFR (Non-Af Amer) 27 L Glucose 317 H Calcium 9.6 Magnesium Total Bilirubin AST ALT Alkaline Phosphatase Total Protein Albumin Blood Type O POSITIVE Antibody Screen NEGATIVE 08/15/18 08/15/18 05:02 14:35 WBC 12.5 H RBC 2.11 L Hgb 6.8 L Hct 19.9 L MCV 94 MCH 32.1 MCHC 34.0 RDW 12.7 Plt Count 193 Seg Neutrophils % 67.1 Lymphocytes % 21.0 Monocytes % 7.7 Eosinophils % 3.5 Basophils % 0.7 Absolute Neutrophils 8.4 H Absolute Lymphocytes 2.6 Absolute Monocytes 1.0 Absolute Eosinophils 0.4 Absolute Basophils 0.1 Sodium 142.8 Potassium 4.2 Chloride 113 H Carbon Dioxide 23 Anion Gap 7 BUN 91 H Creatinine 2.23 H Est GFR ( Amer) 34 L Est GFR (Non-Af Amer) 28 L Glucose 138 H Calcium 8.9 Magnesium 2.0 Total Bilirubin 0.4 AST 15 L ALT 17 L Alkaline Phosphatase 39 Total Protein 5.1 L Albumin 2.8 L Blood Type Antibody Screen 08/15/18 05:02 NT-Pro-B Natriuret Pep 458 H Impressions: Acute Abdomen Series 08/14/18 10:08 IMPRESSION: NO RADIOGRAPHIC EVIDENCE FOR ACUTE ABDOMINAL DISEASE. Assessment & Plan - Diagnosis (1) GI bleed Is this a current diagnosis for this admission?: Yes Plan: Likely upper GI bleed. Patient had a drop of monitor H&H. Upper GI endoscopy on Saturday. H&H. Transfuse if actively bleeding or less than 7. Monitor volume status (2) Diabetes Is this a current diagnosis for this admission?: Yes Plan: Diabetic diet, long-acting insulin, pre-meal insulin, sliding scale insulin, adjust dosage as needed. (3) HTN (hypertension) Is this a current diagnosis for this admission?: Yes Plan: Restart home meds. Hold lisinopril and Lasix due to worsening kidney function. Hydralazine as needed. (4) Acute kidney injury superimposed on CKD Is this a current diagnosis for this admission?: Yes Plan: Likely due to intravascular volume depletion caused by nausea vomiting and diarrhea. Her volume status, monitor electrolytes. Patient has history of CKD stage IV seen by Dr. Biswas as outpatient. Will consult Dr. Biswas. Renal ultrasound. (5) Hyperkalemia Is this a current diagnosis for this admission?: Yes Plan: Resolved. (6) Hyperglycemia Is this a current diagnosis for this admission?: Yes Plan: Controlled. Continue treatment for underlying diabetes.
--- NOTE | 2018-08-15 20:31 | PDOC CONSULTATION ---
Consultation Consult reason:: GI Bleed History of Present Illness Admission Date/PCP: 08/14/18 12:21 RICCI LAM MD History of Present Illness: JACKIE ESCOBEDO is a 83 year old malewith history of hypertension, type 1 DM suddenly c/o hematemesis and melena with shortness of breath the day before admission.Denies any abdominal pains,lightheadedness. On baby aspirin a day, 14 units of insulin/day and BP meds.Had not had a melanotic stool since admission. Latest Hemoglobin today was 6.9 and started on first PRBCs. Noted to have markedly elevated BS in ED. Talked to all her 3 daughters in the room. Patient apparently very compliant and this is his first episode of GI bleed. Admits to occasional reflux but no ongoing pains. Has severe osteoarthritis of the right knee and walks with a cane. Past Medical History Cardiac Medical History: Reports: Congestive Heart Failure, Coronary Artery Disease, Hyperlipidema, Hypertension Denies: Myocardial Infarction Pulmonary Medical History: Denies: Asthma, Bronchitis, Chronic Obstructive Pulmonary Disease (COPD), Pneumonia, Tuberculosis Neurological Medical History: Denies: Seizures Endocrine Medical History: Reports: Diabetes Mellitus Type 2 Musculoskeltal Medical History: Reports: Arthritis - B/L hands, and fingers, Gout Psychiatric Medical History: Denies: Depression Hematology: Denies: Anemia Social History Smoking Status: Never Smoker Frequency of Alcohol Use: None Hx Recreational Drug Use: No Drugs: None Hx Prescription Drug Abuse: No Family History Family History: Reviewed & Not Pertinent Parental Family History Reviewed: Yes Children Family History Reviewed: No Sibling(s) Family History Reviewed.: No Medication/Allergy Home Medications: Alprazolam [Xanax 0.25 mg Tablet] 0.25 mg PO Q12HP PRN 08/14/18 Chlorthalidone [Hygroton 25 mg Tablet] 25 mg PO MOWEFR@1000 08/14/18 Cholecalciferol (Vitamin D3) [D3-2000] 2,000 unit PO DAILY 08/14/18 Clonidine HCl [Catapres 0.1 mg Tablet] 0.1 mg PO Q8 08/14/18 Febuxostat [Uloric 40 mg Tablet] 40 mg PO DAILY 08/14/18 Fexofenadine HCl [Allergy Relief] 180 mg PO DAILY 08/14/18 Flunisolide [Nasarel] 2 spray NASL BID 08/14/18 Furosemide [Lasix 40 mg Tablet] 40 mg PO DAILY 08/14/18 Glimepiride [Amaryl] 2 mg PO QAM 08/14/18 Hydrocortisone/Pramoxine [Proctofoam-Hc 1%-1% Foam] [address] DAILYP PRN 08/14/18 Insulin Degludec [Tresiba Flextouch U-200] 20 unit SQ QHS 08/14/18 Isosorbide Mononitrate [Imdur 30 mg Tablet.er] 30 mg PO DAILY 08/14/18 Levothyroxine Sodium [Synthroid 0.025 mg Tablet] 0.025 mg PO Q6AM 08/14/18 Lisinopril [Prinivil 40 mg Tablet] 40 mg PO Q12 08/14/18 Multivitamin [Tab-A-Marlys (Multiple Vitamin) Tablet] 1 tab PO DAILY 08/14/18 Mupirocin [Bactroban 2% Ointment 22 gm] 1 applic TOP TID 08/14/18 Potassium Chloride [Klor-Con 10 Meq Capsule ER] 10 meq PO DAILY 08/14/18 Simvastatin [Zocor 20 mg Tablet] 20 mg PO QHS 08/14/18 Sitagliptin Phosphate [Januvia] 100 mg PO DAILY 08/14/18 Spironolactone [Aldactone 25 mg Tablet] 25 mg PO DAILY 08/14/18 Allergies/Adverse Reactions: Penicillins Allergy (Severe, Verified 08/14/18 08:49) Anaphylaxis Physical Exam Vital Signs: Temp Pulse Resp BP Pulse Ox 98.0 F 104 H 16 97/42 L 81 L 08/15/18 16:50 08/15/18 16:50 08/15/18 16:50 08/15/18 16:50 08/15/18 16:50 Intake & Output 08/14/18 08/15/18 08/16/18 06:59 06:59 06:59 Intake Total 2200 1441 Output Total 800 500 Balance 1400 941 Weight 74.6 kg Results Laboratory Results: 08/15/18 14:35 08/15/18 05:02 08/14/18 08/14/18 08/15/18 10:48 20:35 05:02 WBC 13.3 H RBC 2.48 L Hgb 8.1 L D Hct 23.4 L MCV 95 MCH 32.5 MCHC 34.4 RDW 12.6 Plt Count 185 Seg Neutrophils % 67.0 Lymphocytes % 21.3 Monocytes % 9.7 Eosinophils % 1.5 Basophils % 0.5 Absolute Neutrophils 8.9 H Absolute Lymphocytes 2.8 Absolute Monocytes 1.3 Absolute Eosinophils 0.2 Absolute Basophils 0.1 Sodium 140.1 Potassium 4.7 D Chloride 107 Carbon Dioxide 21 L Anion Gap 12 BUN 101 H Creatinine 2.28 H Est GFR ( Amer) 33 L Est GFR (Non-Af Amer) 27 L Glucose 317 H Calcium 9.6 Magnesium Total Bilirubin AST ALT Alkaline Phosphatase Total Protein Albumin Blood Type O POSITIVE Antibody Screen NEGATIVE 08/15/18 08/15/18 05:02 14:35 WBC 12.5 H RBC 2.11 L Hgb 6.8 L Hct 19.9 L MCV 94 MCH 32.1 MCHC 34.0 RDW 12.7 Plt Count 193 Seg Neutrophils % 67.1 Lymphocytes % 21.0 Monocytes % 7.7 Eosinophils % 3.5 Basophils % 0.7 Absolute Neutrophils 8.4 H Absolute Lymphocytes 2.6 Absolute Monocytes 1.0 Absolute Eosinophils 0.4 Absolute Basophils 0.1 Sodium 142.8 Potassium 4.2 Chloride 113 H Carbon Dioxide 23 Anion Gap 7 BUN 91 H Creatinine 2.23 H Est GFR ( Amer) 34 L Est GFR (Non-Af Amer) 28 L Glucose 138 H Calcium 8.9 Magnesium 2.0 Total Bilirubin 0.4 AST 15 L ALT 17 L Alkaline Phosphatase 39 Total Protein 5.1 L Albumin 2.8 L Blood Type Antibody Screen 08/15/18 05:02 NT-Pro-B Natriuret Pep 458 H Impressions: Acute Abdomen Series 08/14/18 10:08 IMPRESSION: NO RADIOGRAPHIC EVIDENCE FOR ACUTE ABDOMINAL DISEASE. Assessment & Plan - Time Time Spent: 30 to 50 Minutes - Inpatient Certification Medical Necessity: Need Close Monitoring Due to Risk of Patient Decompensation, Need For IV Fluids, Risk of Complication if Not Cared For in Hospital - Plan Summary Plan Summary: Transfuse Continue monitor H/H Correct BS For egd/colonoscopy prior to discharge
[2018-08-15] MEDS ORDERED: INSULIN GLARGINE,HUM.REC.ANLOG 300 UNIT/3 ML INSULN.PEN SUBCUT SCH (22:00)
[2018-08-16] MEDS: NORMAL SALINE 1000 ML 1,000 ML IV PRN ×2 (03:10→10:04)
[2018-08-16] MEDS: LEVOTHYROXINE SODIUM 0.025 MG TABLET PO SCH (06:00)
[2018-08-16] MEDS: CLONIDINE HCL 0.1 MG TABLET PO SCH (06:00)
[2018-08-16 06:01] LABS: ABSOLUTE BASOPHILS # (AUTO) 0.1 10^3/uL (0.0-0.2); ABSOLUTE EOSINOPHILS # (AUTO) 0.5 10^3/uL (0.0-0.6); ABSOLUTE LYMPHOCYTES (AUTO) 2.3 10^3/uL (0.5-4.7); ABSOLUTE MONOCYTES (AUTO) 0.9 10^3/uL (0.1-1.4); ABSOLUTE NEUT (AUTO) 6.3 10^3/uL (1.7-8.2); BASOPHILS % (AUTO) 0.7 % (0-2); EOSINOPHILS % (AUTO) 5.3 % (0-6); LYMPHOCYTES % (AUTO) 22.9 % (13-45); MEAN CORPUSCULAR HEMOGLOBIN 32.3 pg (27.0-33.4); MEAN CORPUSCULAR HGB CONC 35.4 g/dL (32.0-36.0); MEAN CORPUSCULAR VOLUME 91 fl (80-97); MONOCYTES % (AUTO) 9.1 % (3-13); PLATELET COUNT 184 10^3/uL (150-450); RED BLOOD COUNT 2.86 10^6/uL (4.35-5.55); RED CELL DISTRIBUTION WIDTH 12.7 % (11.5-14.0); TOTAL CELLS COUNTED % (AUTO) 100 %; WHITE BLOOD COUNT 10.2 10^3/uL (4.0-10.5)
[2018-08-16 06:09] LABS: HEMOGLOBIN 9.2 g/dL (13.5-17.0)
[2018-08-16 06:16] LABS: ALANINE AMINOTRANSFERASE 30 U/L (21-72); ALBUMIN 2.6 g/dL (3.5-5.0); ALKALINE PHOSPHATASE 37 U/L (38-126); ASPARTATE AMINO TRANSFERASE 29 U/L (17-59); BILIRUBIN,TOTAL 0.4 mg/dL (0.2-1.3); BLOOD UREA NITROGEN 61 mg/dL (7-20); CALCIUM 8.5 mg/dL (8.4-10.2); GLUCOSE 95 mg/dL (75-110); POTASSIUM 4.1 mmol/L (3.6-5.0); TOTAL PROTEIN 4.9 g/dL (6.3-8.2)
[2018-08-16 06:21] LABS: CARBON DIOXIDE 23 mmol/L (22-30); CHLORIDE 115 mmol/L (98-107); SODIUM 141.8 mmol/L (137-145)
[2018-08-16 06:23] LABS: ANION GAP 4 (5-19)
[2018-08-16] MEDS: CHOLECALCIFEROL (D3) 1,000 UNIT TABLET PO SCH (10:04)
[2018-08-16] MEDS: FAMOTIDINE 20 MG TABLET PO SCH ×2 (10:04→21:56)
[2018-08-16] MEDS: FEBUXOSTAT 40 MG TABLET PO SCH (10:04)
[2018-08-16] MEDS: SITAGLIPTIN PHOSPHATE 50 MG TABLET PO SCH (12:50)
--- NOTE | 2018-08-16 13:31 | PDOC PROGRESS REPORT ---
Subjective Progress Note for:: 08/16/18 Subjective:: No acute events overnight. Patient has not had any recurrence of his hematemesis or melena however his hemoglobin dropped to less than 7 and on 08/15/2018 and he was transfused 2 units. Denies any fever, chills, nausea, vomiting, diarrhea, constipation, abdominal pain or any urinary symptoms. Reason For Visit: GI BLEED Physical Exam Vital Signs: Temp Pulse Resp BP Pulse Ox 98.0 F 64 16 101/47 L 95 08/16/18 07:49 08/16/18 12:05 08/16/18 12:05 08/16/18 07:49 08/16/18 12:05 Intake & Output 08/15/18 08/16/18 08/17/18 06:59 06:59 06:59 Intake Total 2200 4101 1000 Output Total 800 1350 Balance 1400 2751 1000 Weight 74.6 kg 73.3 kg General appearance: PRESENT: no acute distress, well-developed, well-nourished Head exam: PRESENT: atraumatic, normocephalic Respiratory exam: PRESENT: clear to auscultation choco. ABSENT: rales, rhonchi, wheezes Cardiovascular exam: PRESENT: RRR. ABSENT: diastolic murmur, rubs, systolic murmur GI/Abdominal exam: PRESENT: normal bowel sounds, soft. ABSENT: distended, guarding, mass, organolmegaly, rebound, tenderness Extremities exam: PRESENT: full ROM. ABSENT: calf tenderness, clubbing, pedal edema Neurological exam: PRESENT: alert, awake, oriented to person, oriented to place, oriented to time, oriented to situation, CN II-XII grossly intact. ABSENT: motor sensory deficit Results Laboratory Results: 08/16/18 05:28 08/16/18 05:28 08/14/18 08/15/18 08/16/18 10:48 14:35 05:28 WBC 12.5 H 10.2 RBC 2.11 L 2.86 L Hgb 6.8 L 9.2 L D Hct 19.9 L 26.0 L MCV 94 91 MCH 32.1 32.3 MCHC 34.0 35.4 RDW 12.7 12.7 Plt Count 193 184 Seg Neutrophils % 67.1 62.0 Lymphocytes % 21.0 22.9 Monocytes % 7.7 9.1 Eosinophils % 3.5 5.3 Basophils % 0.7 0.7 Absolute Neutrophils 8.4 H 6.3 Absolute Lymphocytes 2.6 2.3 Absolute Monocytes 1.0 0.9 Absolute Eosinophils 0.4 0.5 Absolute Basophils 0.1 0.1 Sodium Potassium Chloride Carbon Dioxide Anion Gap BUN Creatinine Est GFR ( Amer) Est GFR (Non-Af Amer) Glucose Calcium Magnesium Total Bilirubin AST ALT Alkaline Phosphatase Total Protein Albumin Blood Type O POSITIVE Antibody Screen NEGATIVE 08/16/18 05:28 WBC RBC Hgb Hct MCV MCH MCHC RDW Plt Count Seg Neutrophils % Lymphocytes % Monocytes % Eosinophils % Basophils % Absolute Neutrophils Absolute Lymphocytes Absolute Monocytes Absolute Eosinophils Absolute Basophils Sodium 141.8 Potassium 4.1 Chloride 115 H Carbon Dioxide 23 Anion Gap 4 L BUN 61 H Creatinine 1.94 H Est GFR ( Amer) 40 L Est GFR (Non-Af Amer) 33 L Glucose 95 Calcium 8.5 Magnesium 2.0 Total Bilirubin 0.4 AST 29 ALT 30 Alkaline Phosphatase 37 L Total Protein 4.9 L Albumin 2.6 L Blood Type Antibody Screen 08/15/18 05:02 NT-Pro-B Natriuret Pep 458 H Impressions: Acute Abdomen Series 08/14/18 10:08 IMPRESSION: NO RADIOGRAPHIC EVIDENCE FOR ACUTE ABDOMINAL DISEASE. Assessment & Plan - Diagnosis (1) GI bleed Is this a current diagnosis for this admission?: Yes Plan: Likely upper GI bleed. Patient had a drop of monitor H&H. Upper GI endoscopy on Saturday. s/p 2 PRBC transfusion on 08/15/2018. Transfuse if actively bleeding or less than 7. Endoscopy/Colonoscopy on Saturday. NPO after Saturday Midnight. (2) Diabetes Is this a current diagnosis for this admission?: Yes Plan: Diabetic diet, long-acting insulin, pre-meal insulin, sliding scale insulin, adjust dosage as needed. (3) HTN (hypertension) Is this a current diagnosis for this admission?: Yes Plan: Restart home meds. Hold lisinopril and Lasix due to worsening kidney function. Hydralazine as needed. (4) Acute kidney injury superimposed on CKD Is this a current diagnosis for this admission?: Yes Plan: Improving. Likely due to intravascular volume depletion caused by nausea vomiting and diarrhea. Monitor volume status, monitor electrolytes. Patient has history of CKD stage IV seen by Dr. Biswas as outpatient. Will c onsult Dr. Biswas. Renal ultrasound. (5) Hyperkalemia Is this a current diagnosis for this admission?: Yes Plan: Resolved. (6) Hyperglycemia Is this a current diagnosis for this admission?: Yes Plan: Controlled. Continue treatment for underlying diabetes.
--- NOTE | 2018-08-16 14:50 | PDOC PROGRESS REPORT ---
Subjective Progress Note for:: 08/16/18 Subjective:: no pains. Feeling much better this am. Reason For Visit: GI BLEED Physical Exam Vital Signs: Temp Pulse Resp BP Pulse Ox 98.0 F 64 16 101/47 L 95 08/16/18 07:49 08/16/18 12:05 08/16/18 12:05 08/16/18 07:49 08/16/18 12:05 Intake & Output 08/15/18 08/16/18 08/17/18 06:59 06:59 06:59 Intake Total 2200 4101 1000 Output Total 800 1350 Balance 1400 2751 1000 Weight 74.6 kg 73.3 kg Exam: abdomen is soft and non tender Results Laboratory Results: 08/16/18 05:28 08/16/18 05:28 08/14/18 08/15/18 08/16/18 10:48 14:35 05:28 WBC 12.5 H 10.2 RBC 2.11 L 2.86 L Hgb 6.8 L 9.2 L D Hct 19.9 L 26.0 L MCV 94 91 MCH 32.1 32.3 MCHC 34.0 35.4 RDW 12.7 12.7 Plt Count 193 184 Seg Neutrophils % 67.1 62.0 Lymphocytes % 21.0 22.9 Monocytes % 7.7 9.1 Eosinophils % 3.5 5.3 Basophils % 0.7 0.7 Absolute Neutrophils 8.4 H 6.3 Absolute Lymphocytes 2.6 2.3 Absolute Monocytes 1.0 0.9 Absolute Eosinophils 0.4 0.5 Absolute Basophils 0.1 0.1 Sodium Potassium Chloride Carbon Dioxide Anion Gap BUN Creatinine Est GFR ( Amer) Est GFR (Non-Af Amer) Glucose Calcium Magnesium Total Bilirubin AST ALT Alkaline Phosphatase Total Protein Albumin Blood Type O POSITIVE Antibody Screen NEGATIVE 08/16/18 05:28 WBC RBC Hgb Hct MCV MCH MCHC RDW Plt Count Seg Neutrophils % Lymphocytes % Monocytes % Eosinophils % Basophils % Absolute Neutrophils Absolute Lymphocytes Absolute Monocytes Absolute Eosinophils Absolute Basophils Sodium 141.8 Potassium 4.1 Chloride 115 H Carbon Dioxide 23 Anion Gap 4 L BUN 61 H Creatinine 1.94 H Est GFR ( Amer) 40 L Est GFR (Non-Af Amer) 33 L Glucose 95 Calcium 8.5 Magnesium 2.0 Total Bilirubin 0.4 AST 29 ALT 30 Alkaline Phosphatase 37 L Total Protein 4.9 L Albumin 2.6 L Blood Type Antibody Screen 08/15/18 05:02 NT-Pro-B Natriuret Pep 458 H Impressions: Acute Abdomen Series 08/14/18 10:08 IMPRESSION: NO RADIOGRAPHIC EVIDENCE FOR ACUTE ABDOMINAL DISEASE. Assessment & Plan - Time Time Spent with patient: 15-24 minutes - Inpatient Certification Medical Necessity: Need Close Monitoring Due to Risk of Patient Decompensation, Need For IV Fluids, Risk of Complication if Not Cared For in Hospital - Plan Summary Plan Summary: HgB up to 9.6 from 6.8 yesterday. This was after 2 units PRBC No evidence for active bleeding at this time For possible EGD/Colonoscopy Saturday
--- NOTE | 2018-08-16 21:50 | XCELERA REPORT ---
[address] [address] Transthoracic Echocardiogram Report Name: JACKIE ESCOBEDO Age: 83 yrs Gender: Male : 1935 Patient Status: Inpatient Patient Location: [address] [place] [address] Study Date: 08/15/2018 08:18 PM Height: 64 in Weight: 164 lb BSA: 1.8 m2 Procedure: A two-dimensional transthoracic echocardiogram with color flow Doppler was performed. Study Quality: Poor. The study was technically difficult with many images being suboptimal in quality. The study was technically limited with all images being suboptimal in quality. Reason For Study: CHF Exacerbation History: CHF. Ordering Physician: PETTY KEATING Performed By: Rosa Greenwood Interpretation Summary There is normal left ventricular wall thickness. No True apical 2 chamber views obtained.Hence cannot comment on the apical anterior , the basal anterior, the basal inferior and apical inferior ahn.The mid anterior , the mid inferior and the rest of the LV ahn contract normally. .Normal LVEF is normal and is greater than 65% in the limited views. Doppler measurements suggest impaired left ventricular relaxation, which is associated with grade I/IV or mild diastolic dysfunction The right ventricle is not well visualized secondary to technical limitations The right atrium is normal. The left atrial size is normal. There is no evidence of mitral valve prolapse. There is no vegetation seen on the mitral valve. There is a trace amount of mitral regurgitation There is no aortic valvular vegetation. There is no aortic valve stenosis There is no LVOT obstruction. There is a mild amount of aortic regurgitation There is no tricuspid stenosis. Right ventricular systolic pressure is at the upper limits of normal RVSP IS 26 TO 31 MM OF Hg, WITH RA MEAN OF 5 TO 10. There is no pericardial effusion. MMode/2D Measurements & Calculations RVDd: 2.4 cm LVIDd: 4.1 cm FS: 37.7 % Ao root diam: 3.0 cm IVSd: 1.0 cm LVIDs: 2.6 cm EDV(Teich): 75.0 ml Ao root area: 7.1 cm2 LVPWd: 1.0 cm ESV(Teich): 23.8 ml LA dimension: 2.8 cm EF(Teich): 68.3 % Doppler Measurements & Calculations MV E max carlos enrique: MV P1/2t max carlos enrique: Ao V2 max: AI max carlos enrique: 85.8 cm/sec 124.1 cm/sec 157.1 cm/sec 274.9 cm/sec MV A max carlos enrique: MV P1/2t: 57.2 msec Ao max PG: AI max P.3 cm/sec MVA(P1/2t): 3.8 cm2 9.9 mmHg 30.4 mmHg MV E/A: 0.64 MV dec slope: AI dec slope: 107.6 cm/sec2 635.9 cm/sec2 AI P1/2t: MV dec time: 0.24 sec 748.3 msec LV V1 max PG: TV V2 max: PA V2 max: PI end-d carlos enrique: 4.0 mmHg 76.0 cm/sec 89.6 cm/sec 82.8 cm/sec LV V1 max: TV max P.3 mmHg PA max P.1 cm/sec 3.2 mmHg TR max carlos enrique: AV P1/2t-pr_phl: MV P1/2t-pr_phl: 227.9 cm/sec 774.2 msec 57.2 msec TR max P.8 mmHg Left Ventricle The left ventricle is normal in size. There is normal left ventricular wall thickness. No True apical 2 chamber views obtained.Hence cannot comment on the apical anterior , the basal anterior, the basal inferior and apical inferior ahn.The mid anterior , the mid inferior and the rest of the LV ahn contract normally. .Normal LVEF is normal and is greater than 65% in the limited views. Doppler measurements suggest impaired left ventricular relaxation, which is associated with grade I/IV or mild diastolic dysfunction. Right Ventricle The right ventricle is not well visualized secondary to technical limitations. Atria The right atrium is normal. The left atrial size is normal. Mitral Valve There is no evidence of mitral valve prolapse. There is no vegetation seen on the mitral valve. There is no mitral valve stenosis. There is a trace amount of mitral regurgitation. Aortic Valve There is no aortic valvular vegetation. There is no aortic valve stenosis. There is no LVOT obstruction. There is a mild amount of aortic regurgitation. Tricuspid Valve There is no tricuspid stenosis. There is a trace amount of tricuspid regurgitation. Right ventricular systolic pressure is at the upper limits of normal. RVSP IS 26 TO 31 MM OF Hg, WITH RA MEAN OF 5 TO 10. Pulmonic Valve The pulmonic valve is not well visualized. Great Vessels The aortic root is not well visualized. The inferior vena cava appeared normal and decreased > 50% with respiration (RAP 5-10 mmHg). Effusions There is no pericardial effusion. : PETTY KEATING > Ene [place]
[2018-08-16] MEDS: INSULIN GLARGINE,HUM.REC.ANLOG 300 UNIT/3 ML INSULN.PEN SUBCUT SCH (21:56)
[2018-08-16] MEDS: SIMVASTATIN 10 MG TABLET PO SCH (21:56)
[2018-08-16 22:19] LABS: APPEARANCE,URINE CLEAR; BILIRUBIN,URINE NEGATIVE (NEGATIVE); COLOR,URINE STRAW; GLUCOSE, URINE 150 mg/dL (NEGATIVE); KETONES,URINE NEGATIVE (NEGATIVE); LEUKOCYTE ESTERASE,URINE NEGATIVE (NEGATIVE); NITRITE,URINE NEGATIVE (NEGATIVE); PROTEIN,URINE NEGATIVE (NEGATIVE); URINE SPECIFIC GRAVITY 1.014; UROBILINOGEN,URINE NEGATIVE mg/dL (<2.0)
[2018-08-17] MEDS: LEVOTHYROXINE SODIUM 0.025 MG TABLET PO SCH (06:02)
[2018-08-17] MEDS: NORMAL SALINE 1000 ML 1,000 ML IV PRN (06:58)
[2018-08-17 09:37] LABS: ABSOLUTE BASOPHILS # (AUTO) 0.1 10^3/uL (0.0-0.2); ABSOLUTE EOSINOPHILS # (AUTO) 0.4 10^3/uL (0.0-0.6); ABSOLUTE LYMPHOCYTES (AUTO) 2.1 10^3/uL (0.5-4.7); ABSOLUTE MONOCYTES (AUTO) 0.9 10^3/uL (0.1-1.4); ABSOLUTE NEUT (AUTO) 5.4 10^3/uL (1.7-8.2); BASOPHILS % (AUTO) 0.7 % (0-2); EOSINOPHILS % (AUTO) 4.3 % (0-6); HEMOGLOBIN 10.4 g/dL (13.5-17.0); MEAN CORPUSCULAR HEMOGLOBIN 32.1 pg (27.0-33.4); MEAN CORPUSCULAR HGB CONC 34.8 g/dL (32.0-36.0); MEAN CORPUSCULAR VOLUME 92 fl (80-97); MONOCYTES % (AUTO) 10.2 % (3-13); PLATELET COUNT 230 10^3/uL (150-450); RED BLOOD COUNT 3.25 10^6/uL (4.35-5.55); RED CELL DISTRIBUTION WIDTH 13.2 % (11.5-14.0); SEGMENTED NEUTROPHILS % (AUTO) 60.8 % (42-78); TOTAL CELLS COUNTED % (AUTO) 100 %; WHITE BLOOD COUNT 8.9 10^3/uL (4.0-10.5)
[2018-08-17] MEDS: FEBUXOSTAT 40 MG TABLET PO SCH (09:58)
[2018-08-17] MEDS: FAMOTIDINE 20 MG TABLET PO SCH ×2 (09:58→22:40)
[2018-08-17] MEDS: CHOLECALCIFEROL (D3) 1,000 UNIT TABLET PO SCH (09:58)
--- NOTE | 2018-08-17 11:53 | PDOC PROGRESS REPORT ---
Subjective Progress Note for:: 08/17/18 Subjective:: no pains Reason For Visit: GI BLEED Physical Exam Vital Signs: Temp Pulse Resp BP Pulse Ox 97.8 F 66 18 139/51 H 97 08/17/18 08:00 08/17/18 08:00 08/17/18 08:00 08/17/18 08:00 08/17/18 08:00 Intake & Output 08/16/18 08/17/18 08/18/18 06:59 06:59 06:59 Intake Total 4101 2320 Output Total 1350 750 Balance 2751 1570 Weight 73.3 kg 73.3 kg Exam: abdomen remains soft and non tender HgB up to 10.4 this am after 2 units PRBCs Results Laboratory Results: 08/17/18 09:07 08/16/18 05:28 08/16/18 08/17/18 21:20 09:07 WBC 8.9 RBC 3.25 L Hgb 10.4 L Hct 30.0 L MCV 92 MCH 32.1 MCHC 34.8 RDW 13.2 Plt Count 230 Seg Neutrophils % 60.8 Lymphocytes % 24.0 Monocytes % 10.2 Eosinophils % 4.3 Basophils % 0.7 Absolute Neutrophils 5.4 Absolute Lymphocytes 2.1 Absolute Monocytes 0.9 Absolute Eosinophils 0.4 Absolute Basophils 0.1 Urine Color STRAW Urine Appearance CLEAR Urine pH 5.0 Ur Specific [place] 1.014 Urine Protein NEGATIVE Urine Glucose (UA) 150 H Urine Ketones NEGATIVE Urine Blood NEGATIVE Urine Nitrite NEGATIVE Ur Leukocyte Esterase NEGATIVE Urine WBC (Auto) 0 Urine RBC (Auto) 0 08/15/18 05:02 NT-Pro-B Natriuret Pep 458 H Impressions: Acute Abdomen Series 08/14/18 10:08 IMPRESSION: NO RADIOGRAPHIC EVIDENCE FOR ACUTE ABDOMINAL DISEASE. Assessment & Plan - Time Time Spent with patient: 15-24 minutes - Plan Summary Plan Summary: For possible EGD/Colonoscopy tomorrow Place on bowel prep today
[2018-08-17] MEDS: SITAGLIPTIN PHOSPHATE 50 MG TABLET PO SCH (12:38)
--- NOTE | 2018-08-17 13:35 | PDOC PROGRESS REPORT ---
Subjective Progress Note for:: 08/17/18 Subjective:: No acute events overnight. Patient denies any recurrence of hemoptysis, hematemesis or melena. No fever, chills, nausea, vomiting, diarrhea, constipation. Reason For Visit: GI BLEED Physical Exam Vital Signs: Temp Pulse Resp BP Pulse Ox 98.4 F 65 16 136/64 H 95 08/17/18 12:00 08/17/18 12:16 08/17/18 12:16 08/17/18 12:00 08/17/18 12:16 Intake & Output 08/16/18 08/17/18 08/18/18 06:59 06:59 06:59 Intake Total 4101 2320 Output Total 1350 750 Balance 2751 1570 Weight 73.3 kg 73.3 kg Results Laboratory Results: 08/17/18 09:07 08/16/18 05:28 08/16/18 08/17/18 21:20 09:07 WBC 8.9 RBC 3.25 L Hgb 10.4 L Hct 30.0 L MCV 92 MCH 32.1 MCHC 34.8 RDW 13.2 Plt Count 230 Seg Neutrophils % 60.8 Lymphocytes % 24.0 Monocytes % 10.2 Eosinophils % 4.3 Basophils % 0.7 Absolute Neutrophils 5.4 Absolute Lymphocytes 2.1 Absolute Monocytes 0.9 Absolute Eosinophils 0.4 Absolute Basophils 0.1 Urine Color STRAW Urine Appearance CLEAR Urine pH 5.0 Ur Specific [place] 1.014 Urine Protein NEGATIVE Urine Glucose (UA) 150 H Urine Ketones NEGATIVE Urine Blood NEGATIVE Urine Nitrite NEGATIVE Ur Leukocyte Esterase NEGATIVE Urine WBC (Auto) 0 Urine RBC (Auto) 0 08/15/18 05:02 NT-Pro-B Natriuret Pep 458 H Impressions: Acute Abdomen Series 08/14/18 10:08 IMPRESSION: NO RADIOGRAPHIC EVIDENCE FOR ACUTE ABDOMINAL DISEASE. Assessment & Plan - Diagnosis (1) GI bleed Is this a current diagnosis for this admission?: Yes Plan: Likely upper GI bleed. H&H stable. Possible upper GI endoscopy tomorrow. Bowel prep tonight. N.p.o. after midnight s/p 2 PRBC transfusion on 08/15/2018. Transfuse if actively bleeding or less than 7. (2) Diabetes Is this a current diagnosis for this admission?: Yes Plan: Diabetic diet, long-acting insulin, pre-meal insulin, sliding scale insulin, adjust dosage as needed. (3) HTN (hypertension) Is this a current diagnosis for this admission?: Yes Plan: Controlled. Hold lisinopril and Lasix due to worsening kidney function. H ydralazine as needed. (4) Acute kidney injury superimposed on CKD Is this a current diagnosis for this admission?: Yes Plan: Improving. Likely due to intravascular volume depletion caused by nausea vomiting and diarrhea. Monitor volume status, monitor electrolytes. Patient has history of CKD stage IV seen by Dr. Biswas as outpatient. Will consult Dr. Biswas. Renal ultrasound. (5) Hyperkalemia Is this a current diagnosis for this admission?: Yes Plan: Resolved. (6) Hyperglycemia Is this a current diagnosis for this admission?: Yes Plan: Controlled. Continue treatment for underlying diabetes.
[2018-08-17] MEDS ORDERED: PEG 3350/NA SULF,BICARB,CL/KCL 4000 ML PO ONE (15:00)
[2018-08-17] MEDS: SIMVASTATIN 10 MG TABLET PO SCH (22:40)
[2018-08-17] MEDS: INSULIN GLARGINE,HUM.REC.ANLOG 300 UNIT/3 ML INSULN.PEN SUBCUT SCH (22:43)
[2018-08-18] MEDS: NORMAL SALINE 1000 ML 1,000 ML IV PRN (01:59)
[2018-08-18] MEDS ORDERED: ACETAMINOPHEN 325 MG TABLET PO ONE (03:10)
[2018-08-18 05:04] LABS: ABSOLUTE BASOPHILS # (AUTO) 0.1 10^3/uL (0.0-0.2); ABSOLUTE EOSINOPHILS # (AUTO) 0.1 10^3/uL (0.0-0.6); ABSOLUTE LYMPHOCYTES (AUTO) 1.5 10^3/uL (0.5-4.7); ABSOLUTE MONOCYTES (AUTO) 0.8 10^3/uL (0.1-1.4); ABSOLUTE NEUT (AUTO) 5.5 10^3/uL (1.7-8.2); BASOPHILS % (AUTO) 0.7 % (0-2); EOSINOPHILS % (AUTO) 1.5 % (0-6); HEMATOCRIT 30.3 % (37.9-51.0); HEMOGLOBIN 10.9 g/dL (13.5-17.0); LYMPHOCYTES % (AUTO) 18.8 % (13-45); MEAN CORPUSCULAR HEMOGLOBIN 32.9 pg (27.0-33.4); MEAN CORPUSCULAR VOLUME 91 fl (80-97); MONOCYTES % (AUTO) 10.5 % (3-13); PLATELET COUNT 220 10^3/uL (150-450); RED BLOOD COUNT 3.31 10^6/uL (4.35-5.55); RED CELL DISTRIBUTION WIDTH 12.8 % (11.5-14.0); SEGMENTED NEUTROPHILS % (AUTO) 68.5 % (42-78); TOTAL CELLS COUNTED % (AUTO) 100 %
[2018-08-18] MEDS: LEVOTHYROXINE SODIUM 0.025 MG TABLET PO SCH (05:39)
[2018-08-18 05:53] LABS: ALANINE AMINOTRANSFERASE 42 U/L (21-72); ALBUMIN 3.5 g/dL (3.5-5.0); ALKALINE PHOSPHATASE 51 U/L (38-126); ANION GAP 8 (5-19); ASPARTATE AMINO TRANSFERASE 55 U/L (17-59); BILIRUBIN,DIRECT 0.1 mg/dL (0.0-0.4); BILIRUBIN,TOTAL 0.4 mg/dL (0.2-1.3); BLOOD UREA NITROGEN 22 mg/dL (7-20); CALCIUM 9.1 mg/dL (8.4-10.2); CARBON DIOXIDE 22 mmol/L (22-30); CHLORIDE 112 mmol/L (98-107); GLUCOSE 84 mg/dL (75-110); POTASSIUM 3.8 mmol/L (3.6-5.0); SODIUM 142.1 mmol/L (137-145); TOTAL PROTEIN 6.1 g/dL (6.3-8.2)
[2018-08-18] MEDS: CHOLECALCIFEROL (D3) 1,000 UNIT TABLET PO SCH (09:07)
[2018-08-18] MEDS: FAMOTIDINE 20 MG TABLET PO SCH ×2 (09:07→22:36)
[2018-08-18] MEDS: FEBUXOSTAT 40 MG TABLET PO SCH (09:07)
[2018-08-18] MEDS ORDERED: DEXTROSE 5%-1/2 NORMAL SALINE 1,000 ML IV PRN (12:06)
[2018-08-18] MEDS ORDERED: LABETALOL HCL INJ 20 MG/4 ML DISP.SYRIN IV PRN (12:58)
[2018-08-18] MEDS: SITAGLIPTIN PHOSPHATE 50 MG TABLET PO SCH (13:03)
--- NOTE | 2018-08-18 13:16 | PDOC PROGRESS REPORT ---
Subjective Progress Note for:: 08/18/18 Subjective:: No acute events overnight. Patient denies any recurrence of hemoptysis, hematemesis or melena. Complaining of headache after receiving hydralazine as needed for his high blood pressure. Otherwise denies any melena, hematemesis, hemoptysis denies fever, chills, nausea, vomiting, diarrhea, constipation. Reason For Visit: GI BLEED Physical Exam Vital Signs: Temp Pulse Resp BP Pulse Ox 98.3 F 77 17 152/56 H 98 08/18/18 11:17 08/18/18 11:17 08/18/18 11:17 08/18/18 11:17 08/18/18 11:17 Intake & Output 08/17/18 08/18/18 08/19/18 06:59 06:59 06:59 Intake Total 2320 1905 Output Total 750 500 Balance 1570 1405 Weight 73.3 kg 73.3 kg General appearance: PRESENT: no acute distress, well-developed, well-nourished Head exam: PRESENT: atraumatic, normocephalic Respiratory exam: PRESENT: clear to auscultation choco. ABSENT: rales, rhonchi, wheezes Cardiovascular exam: PRESENT: RRR. ABSENT: diastolic murmur, rubs, systolic murmur GI/Abdominal exam: PRESENT: normal bowel sounds, soft. ABSENT: distended, guarding, mass, organolmegaly, rebound, tenderness Extremities exam: PRESENT: full ROM. ABSENT: calf tenderness, clubbing, pedal edema Neurological exam: PRESENT: alert, awake, oriented to person, oriented to place, oriented to time, oriented to situation, CN II-XII grossly intact. ABSENT: motor sensory deficit Results Laboratory Results: 08/18/18 04:40 08/18/18 04:40 08/18/18 08/18/18 04:40 04:40 WBC 8.0 RBC 3.31 L Hgb 10.9 L Hct 30.3 L MCV 91 MCH 32.9 MCHC 36.0 RDW 12.8 Plt Count 220 Seg Neutrophils % 68.5 Lymphocytes % 18.8 Monocytes % 10.5 Eosinophils % 1.5 Basophils % 0.7 Absolute Neutrophils 5.5 Absolute Lymphocytes 1.5 Absolute Monocytes 0.8 Absolute Eosinophils 0.1 Absolute Basophils 0.1 Sodium 142.1 Potassium 3.8 Chloride 112 H Carbon Dioxide 22 Anion Gap 8 BUN 22 H Creatinine 1.51 H Est GFR ( Amer) 53 L Est GFR (Non-Af Amer) 44 L Glucose 84 Calcium 9.1 Magnesium 1.9 Total Bilirubin 0.4 AST 55 ALT 42 Alkaline Phosphatase 51 Total Protein 6.1 L Albumin 3.5 08/15/18 05:02 NT-Pro-B Natriuret Pep 458 H Impressions: Acute Abdomen Series 08/14/18 10:08 IMPRESSION: NO RADIOGRAPHIC EVIDENCE FOR ACUTE ABDOMINAL DISEASE. Assessment & Plan - Diagnosis (1) GI bleed Is this a current diagnosis for this admission?: Yes Plan: EGD today. H&H stable. Received bowel prep last night. Will follow-up with procedure findings and note recommendation. s/p 2 PRBC transfusion on 08/15/2018. Transfuse if actively bleeding or less than 7. (2) Diabetes Is this a current diagnosis for this admission?: Yes Plan: Controlled. N.p.o. for EGD. Hold pre-meal insulin. Continue Lantus. Postprocedure resume diabetic diet, long-acting insulin, pre-meal insulin, sliding scale insulin, adjust dosage as needed. (3) HTN (hypertension) Is this a current diagnosis for this admission?: Yes Plan: Controlled. Lisinopril was on hold due to worsening kidney function. Kidney function is back to baseline. Restart lisinopril monitor for kidney function and electrolytes. Patient's home med were lisinopril, clonidine, spironolactone, Lasix, Isosorbide mononitrate and chlorthalidone Lisinopril, Lasix and spironolactone were held on this admission due to worsening kidney function. Clonidine was not given 2-3 days due to hypotension. Has not needed a lot of blood pressure meds on this admission. He may benefit from a reconciliation of his meds. Restart home meds and adjust dosage as tolerated. Labetalol as needed. (4) Acute kidney injury superimposed on CKD Is this a current diagnosis for this admission?: Yes Plan: Back to baseline. Likely due to intravascular volume depletion caused by nausea vomiting and diarrhea. Monitor volume status, monitor electrolytes. Patient has history of CKD stage IV seen by Dr. Biswas as outpatient. Will consult Dr. Biswas. (5) Hyperkalemia Is this a current diagnosis for this admission?: Yes Plan: Resolved.
[2018-08-18] MEDS ORDERED: DIPHENHYDRAMINE HCL 50 MG/ML VIAL ONE ×2 (13:45→16:11)
[2018-08-18] MEDS ORDERED: ONDANSETRON HCL INJ/PF 4 MG/2 ML SDV ONE ×2 (13:45→16:11)
[2018-08-18] MEDS ORDERED: FLUMAZENIL INJ 0.5 MG/5 ML VIAL ONE ×2 (13:46→16:12)
[2018-08-18] MEDS ORDERED: GLUCAGON,HUMAN RECOMB 1 MG INJ ONE ×2 (13:46→16:12)
[2018-08-18] MEDS ORDERED: MIDAZOLAM 2 MG/2 ML INJ ONE ×2 (13:46→16:11)
[2018-08-18] MEDS ORDERED: NALOXONE HCL INJ/PF 0.4 MG/1 ML SDV ONE ×2 (13:46→16:12)
[2018-08-18] MEDS ORDERED: EPINEPHRINE INJ 1 MG/10 ML DISP.SYRIN ONE ×2 (13:46→16:12)
[2018-08-18] MEDS ORDERED: FENTANYL CITRATE INJ/PF 100 MCG/2 ML AMPUL ONE ×2 (13:46→16:11)
--- NOTE | 2018-08-18 17:36 | Operative Report ---
Operative Report DATE OF SURGERY: 08/18/18 PREOPERATIVE DIAGNOSIS: 1. Hematemesis consistent with gastrointestinal bleed POSTOPERATIVE DIAGNOSIS: No evidence of upper or lower acute gastrointestinal hemorrhage; grossly unremarkable esophagus, stomach and duodenum and colon OPERATION: 1. Esophagogastroduodenoscopy. 2. Total colonoscopy to cecum with photodocumentation SURGEON: ADEN BROWN ANESTHESIA: Moderate Sedation TISSUE REMOVED OR ALTERED: None COMPLICATIONS: None ESTIMATED BLOOD LOSS: None INTRAOPERATIVE FINDINGS: See below PROCEDURE: Patient was taken on the floor to the endoscopy suite fifth floor conscious sedation was induced. He was placed in a semirecumbent left lateral cubitus position, oral mouthpiece inserted. Plan surgical timeout conducted. Flexible upper endoscope was advanced to the oropharynx, down the esophagus through the stomach into the duodenum. This was well-tolerated by the patient. First and second portion of the duodenal, normal. Stomach was grossly unremarkable. No evidence of tumor stricture bleeding or polyp. Scope was retroflexed and no pathologic findings. There was no significant hiatal hernia. Scope was brought back to the GE junction, and again no pathology are seen. The remainder the esophagus was unremarkable. Scope was removed the patient's oropharynx. Patient was then prepared for colonoscopy. Obtaining informed consent the patient was taken from the preoperative holding area to the main endoscopy suite where monitoring devices were attached to the patient. Plan and surgical timeout were conducted The patient was placed in the left lateral decubitus position with knees to chest. A perianal examination was performed. There was no visible or palpable anorectal pathology. Sphincter tone was felt to be normal. The flexible adult colonoscope was advanced through the anal rectal canal, all the way to the cecum. Visualization of the cecum revealed a fair amount of stool; the appendiceal orifice and transillumination of the anterior abdominal wall were all visualized: This was a reasonably well prepared bowel. The colonoscope was withdrawn slowly and methodically checked and the mucosa carefully. There was no evidence of tumor, stricture, bleeding or polyp. There were a few rare diverticulosis in sigmoid colon. The scope was slowly withdrawn through the anal rectal canal. Complete visualization of the rectum was achieved with photodocumentation. The scope was withdrawn to the patient's anus. The patient tolerated the procedure well and was taken to the recovery area in stable condition. Impression: No endoscopic evidence of upper or lower gastrointestinal hemorrhage. Recommendations: Continue supportive therapy; surgery will sign off; reconsult if indicated.
--- NOTE | 2018-08-18 22:26 | PDOC CONSULTATION ---
Consultation Consult Date: 08/18/18 Attending physician:: PETTY KEATING Consult reason:: I was asked to see the patient due to an episode of acute on chronic kidney disease. History of Present Illness Admission Date/PCP: 08/14/18 12:21 RICCI LAM MD History of Present Illness: JACKIE ESCOBEDO is a 83 year old male with history of chronic kidney disease stage III, diabetes mellitus type 2, and hypertension who was admitted last week on August 14 due to hematemesis and possible GI bleed. Patient and daughter related the patient did have hematemesis on admission as well as black stools. This was also associated by shortness of breath, orthopnea, elevated blood sugar and hypotensive episode with systolic blood pressure of 89. Patient's hemoglobin has gone down from 10.5-6.8 on August 15. He required 2 units of blood transfusion. Patient did have some diarrhea but denies any abdominal pain, nausea or vomiting. Currently the patient's hemoglobin is around 10.9. He also underwent EGD and colonoscopy today which did not show any source of active hemorrhage. On admission the patient also has an elevated BUN of 101 with creatinine of 2.47. Today the patient's BUN is 22 with creatinine of 1.51 which is actually at his baseline. Patient said he is feeling much better. Although he still could not lay down flat on bed he is breathing much better. He denies any problems with urination. He denies any dizziness no leg swelling. 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 Renal/ Medical History: Reports: Chronic Kidney Disease Stage III Musculoskeltal Medical History: Reports: Arthritis - B/L hands, and fingers, Gout Psychiatric Medical History: Reports: General Anxiety Disorder Past Surgical History Past Surgical History: Reports: Other - Eyelid surgery Social History Information Source: Patient Lives with: Family Smoking Status: Never Smoker Frequency of Alcohol Use: None Hx Recreational Drug Use: No Drugs: None Hx Prescription Drug Abuse: No - Advance Directive Resuscitation Status: Full Code Family History Family History: Hypertension - Brother, Malignancy - Father Parental Family History Reviewed: Yes Children Family History Reviewed: Yes Sibling(s) Family History Reviewed.: Yes Medication/Allergy Home Medications: Alprazolam [Xanax 0.25 mg Tablet] 0.25 mg PO Q12HP PRN 08/14/18 Chlorthalidone [Hygroton 25 mg Tablet] 25 mg PO MOWEFR@1000 08/14/18 Cholecalciferol (Vitamin D3) [D3-2000] 2,000 unit PO DAILY 08/14/18 Clonidine HCl [Catapres 0.1 mg Tablet] 0.1 mg PO Q8 08/14/18 Febuxostat [Uloric 40 mg Tablet] 40 mg PO DAILY 08/14/18 Fexofenadine HCl [Allergy Relief] 180 mg PO DAILY 08/14/18 Flunisolide [Nasarel] 2 spray NASL BID 08/14/18 Furosemide [Lasix 40 mg Tablet] 40 mg PO DAILY 08/14/18 Glimepiride [Amaryl] 2 mg PO QAM 08/14/18 Hydrocortisone/Pramoxine [Proctofoam-Hc 1%-1% Foam] 1 applic WA DAILYP PRN 08/14/18 Insulin Degludec [Tresiba Flextouch U-200] 20 unit SQ QHS 08/14/18 Isosorbide Mononitrate [Imdur 30 mg Tablet.er] 30 mg PO DAILY 08/14/18 Levothyroxine Sodium [Synthroid 0.025 mg Tablet] 0.025 mg PO Q6AM 08/14/18 Lisinopril [Prinivil 40 mg Tablet] 40 mg PO Q12 08/14/18 Multivitamin [Tab-A-Marlys (Multiple Vitamin) Tablet] 1 tab PO DAILY 08/14/18 Mupirocin [Bactroban 2% Ointment 22 gm] 1 applic TOP TID 08/14/18 Potassium Chloride [Klor-Con 10 Meq Capsule ER] 10 meq PO DAILY 08/14/18 Simvastatin [Zocor 20 mg Tablet] 20 mg PO QHS 08/14/18 Sitagliptin Phosphate [Januvia] 100 mg PO DAILY 08/14/18 Spironolactone [Aldactone 25 mg Tablet] 25 mg PO DAILY 08/14/18 Allergies/Adverse Reactions: Penicillins Allergy (Severe, Verified 08/14/18 08:49) Anaphylaxis Review of Systems All systems: reviewed and no additional remarkable complaints except as stated Review of Systems: Constitutional: ABSENT: chills, fatigue, fever(s), headache(s), weight gain, weight loss Eyes: ABSENT: visual disturbances Ears: ABSENT: hearing changes Cardiovascular: ABSENT: chest pain, dyspnea on exertion, edema, palpitations; admits orthopnea Respiratory: ABSENT: cough, dyspnea, hemoptysis Gastrointestinal: ABSENT: abdominal pain, constipation, diarrhea, hematochezia, nausea, vomiting; admits hematemesis and melena Genitourinary: ABSENT: dysuria, hematuria Musculoskeletal: ABSENT: joint swelling Integumentary: ABSENT: rash, wounds Neurological: ABSENT: abnormal gait, abnormal speech, confusion, dizziness, focal weakness, numbness, syncope Psychiatric: ABSENT: anxiety, depression Endocrine: ABSENT: cold intolerance, heat intolerance, polydipsia, polyuria Hematologic/Lymphatic: ABSENT: easy bleeding, easy bruising, lymphadenopathy Physical Exam Vital Signs: Temp Pulse Resp BP Pulse Ox 98.2 F 89 22 H 141/54 H 100 08/18/18 20:09 08/18/18 20:09 08/18/18 17:05 08/18/18 20:09 08/18/18 20:09 Intake & Output 08/17/18 08/18/18 08/19/18 06:59 06:59 06:59 Intake Total 2320 1905 1650 Output Total 750 500 200 Balance 1570 1405 1450 Weight 73.3 kg 73.3 kg Exam: General appearance: No acute distress, cooperative, well-developed, well- nourished Head exam: PRESENT: atraumatic, normocephalic Eye exam: PRESENT: Conjunctiva slightly pale, EOMI, PERRLA. ABSENT: conjunctival injection, scleral icterus Mouth exam: PRESENT: moist, neck supple, tongue midline Neck exam: PRESENT: full ROM. ABSENT: carotid bruit, JVD, lymphadenopathy, thyromegaly Respiratory exam: PRESENT: clear to auscultation bilaterally. ABSENT: rales, rhonchi, stridor, wheezes Cardiovascular exam: PRESENT: RRR, +S1, +S2. ABSENT: systolic murmur Pulses: PRESENT: normal radial pulses, normal dorsalis pedis pulses GI/Abdominal exam: PRESENT: normal bowel sounds, soft. ABSENT: guarding, mass, tenderness Rectal exam: Deferred Extremities exam: PRESENT: full ROM. ABSENT: calf tenderness, pedal edema Musculoskeletal: PRESENT: full ROM. ABSENT: deformity Neurological exam: PRESENT: alert, Awake, Oriented to person, Oriented to place, Oriented to time, reflexes normal, CN II-XII grossly intact. ABSENT: motor sensory deficit Psychiatric exam: PRESENT: appropriate affect, normal mood. ABSENT: homicidal ideation, suicidal ideation Skin exam: PRESENT: intact, dry, warm. ABSENT: rash Results Laboratory Results: 08/18/18 04:40 08/18/18 04:40 08/18/18 08/18/18 04:40 04:40 WBC 8.0 RBC 3.31 L Hgb 10.9 L Hct 30.3 L MCV 91 MCH 32.9 MCHC 36.0 RDW 12.8 Plt Count 220 Seg Neutrophils % 68.5 Lymphocytes % 18.8 Monocytes % 10.5 Eosinophils % 1.5 Basophils % 0.7 Absolute Neutrophils 5.5 Absolute Lymphocytes 1.5 Absolute Monocytes 0.8 Absolute Eosinophils 0.1 Absolute Basophils 0.1 Sodium 142.1 Potassium 3.8 Chloride 112 H Carbon Dioxide 22 Anion Gap 8 BUN 22 H Creatinine 1.51 H Est GFR ( Amer) 53 L Est GFR (Non-Af Amer) 44 L Glucose 84 Calcium 9.1 Magnesium 1.9 Total Bilirubin 0.4 AST 55 ALT 42 Alkaline Phosphatase 51 Total Protein 6.1 L Albumin 3.5 08/15/18 05:02 NT-Pro-B Natriuret Pep 458 H Impressions: Acute Abdomen Series 08/14/18 10:08 IMPRESSION: NO RADIOGRAPHIC EVIDENCE FOR ACUTE ABDOMINAL DISEASE. Assessment & Plan - Diagnosis (1) Acute kidney injury superimposed on CKD Is this a current diagnosis for this admission?: Yes Plan: This most likely secondary to acute prerenal azotemia secondary to GI bleed which is now currently resolved. Patient is now currently at baseline kidney function. No further intervention from nephrology standpoint. (2) GI bleed Is this a current diagnosis for this admission?: Yes Plan: Uncertain etiology. EGD and colonoscopy did not show any active hemorrhage. Blood count currently stable. (3) Diabetes Is this a current diagnosis for this admission?: Yes Plan: Defer to hospitalist. (4) HTN (hypertension) Is this a current diagnosis for this admission?: Yes Plan: Controlled. - Notes Notes: Thank you very much for this consultation. - Time Time Spent: 50 to 70 Minutes
[2018-08-18] MEDS: SIMVASTATIN 10 MG TABLET PO SCH (22:36)
[2018-08-18] MEDS: LISINOPRIL 10 MG TABLET PO SCH (22:36)
[2018-08-18] MEDS: CARVEDILOL 12.5 MG TABLET PO SCH (22:36)
[2018-08-18] MEDS: INSULIN GLARGINE,HUM.REC.ANLOG 300 UNIT/3 ML INSULN.PEN SUBCUT SCH (22:37)
[2018-08-19] MEDS: LEVOTHYROXINE SODIUM 0.025 MG TABLET PO SCH (05:47)
[2018-08-19 06:23] LABS: ABSOLUTE BASOPHILS # (AUTO) 0.1 10^3/uL (0.0-0.2); ABSOLUTE EOSINOPHILS # (AUTO) 0.4 10^3/uL (0.0-0.6); ABSOLUTE LYMPHOCYTES (AUTO) 1.7 10^3/uL (0.5-4.7); ABSOLUTE MONOCYTES (AUTO) 0.9 10^3/uL (0.1-1.4); ABSOLUTE NEUT (AUTO) 4.7 10^3/uL (1.7-8.2); BASOPHILS % (AUTO) 0.9 % (0-2); EOSINOPHILS % (AUTO) 5.1 % (0-6); HEMATOCRIT 31.8 % (37.9-51.0); LYMPHOCYTES % (AUTO) 21.7 % (13-45); MEAN CORPUSCULAR HEMOGLOBIN 31.8 pg (27.0-33.4); MEAN CORPUSCULAR HGB CONC 34.5 g/dL (32.0-36.0); MEAN CORPUSCULAR VOLUME 92 fl (80-97); MONOCYTES % (AUTO) 12.1 % (3-13); PLATELET COUNT 239 10^3/uL (150-450); RED BLOOD COUNT 3.45 10^6/uL (4.35-5.55); RED CELL DISTRIBUTION WIDTH 13.2 % (11.5-14.0); SEGMENTED NEUTROPHILS % (AUTO) 60.2 % (42-78); TOTAL CELLS COUNTED % (AUTO) 100 %; WHITE BLOOD COUNT 7.8 10^3/uL (4.0-10.5)
[2018-08-19 06:46] LABS: ALANINE AMINOTRANSFERASE 39 U/L (21-72); ALBUMIN 3.3 g/dL (3.5-5.0); ALKALINE PHOSPHATASE 46 U/L (38-126); ANION GAP 9 (5-19); ASPARTATE AMINO TRANSFERASE 45 U/L (17-59); BILIRUBIN,DIRECT 0.1 mg/dL (0.0-0.4); BILIRUBIN,TOTAL 0.4 mg/dL (0.2-1.3); BLOOD UREA NITROGEN 22 mg/dL (7-20); CARBON DIOXIDE 23 mmol/L (22-30); CHLORIDE 108 mmol/L (98-107); GLUCOSE 134 mg/dL (75-110); POTASSIUM 4.3 mmol/L (3.6-5.0); SODIUM 140.2 mmol/L (137-145); TOTAL PROTEIN 5.9 g/dL (6.3-8.2)
[2018-08-19] MEDS: LISINOPRIL 10 MG TABLET PO SCH ×2 (09:21→21:42)
[2018-08-19] MEDS: CHOLECALCIFEROL (D3) 1,000 UNIT TABLET PO SCH ×2 (09:22→09:24)
[2018-08-19] MEDS: CARVEDILOL 12.5 MG TABLET PO SCH ×2 (09:22→21:41)
[2018-08-19] MEDS: FAMOTIDINE 20 MG TABLET PO SCH ×2 (09:22→21:41)
[2018-08-19] MEDS: FEBUXOSTAT 40 MG TABLET PO SCH (09:22)
--- NOTE | 2018-08-19 09:56 | RADIOLOGY REPORT (SQ) ---
EXAM DESCRIPTION: U/S ABDOMEN LTD W/DOPPLER COMPLETED DATE/TIME: 08/19/2018 9:01 am REASON FOR STUDY: abdominal pain COMPARISON: 2013 TECHNIQUE: Dynamic and static grayscale images acquired of the abdomen and recorded on PACS. Additio nal selected color Doppler and spectral images recorded. LIMITATIONS: None. FINDINGS: PANCREAS: No masses. Visualized pancreatic duct normal caliber. LIVER: Normal size Moderate to marked fatty infiltration. No focal masses. LIVER VASCULATURE: Normal directional flow of the main portal vein and hepatic veins. GALLBLADDER: No stones. Normal wall thickness. No pericholecystic fluid. ULTRASOUND-DETECTED BROWN'S SIGN: Negative. INTRAHEPATIC DUCTS AND COMMON DUCT: CBD and intrahepatic ducts normal caliber. No filling defects. INFERIOR VENA CAVA: Normal flow. AORTA: No aneurysm. RIGHT KIDNEY: Normal size. 2 renal cysts measuring up to 2 cm. No solid or suspicious masses. No hydronephrosis. No calcifications. PERITONEAL AND RIGHT PLEURAL SPACE: No ascites or effusions. OTHER: No other significant findings. IMPRESSION: No acute findings. Fatty liver. Right renal cysts. TECHNICAL DOCUMENTATION: JOB ID: [id number]- All Rights Reserved Reading location - IP/workstation name: [email or web address]
[2018-08-19] MEDS: SITAGLIPTIN PHOSPHATE 50 MG TABLET PO SCH (12:41)
[2018-08-19] MEDS ORDERED: DEXTROSE 50%-WATER 25 GM/50 ML DISP.SYRIN IV PRN ×2 (16:58)
[2018-08-19] MEDS ORDERED: GLUCAGON,HUMAN RECOMB 1 MG INJ IM PRN (16:58)
[2018-08-19] MEDS ORDERED: DEXTROSE 40% GEL 15 GM TUBE PO PRN ×2 (16:58)
--- NOTE | 2018-08-19 17:54 | EKG REPORT ---
SEVERITY:- OTHERWISE NORMAL ECG - SINUS RHYTHM BORDERLINE PROLONGED QT INTERVAL : Confirmed by: Ene Kirkland MD 19-Aug-2018 17:53:32
--- NOTE | 2018-08-19 19:21 | PDOC PROGRESS REPORT ---
Subjective Progress Note for:: 08/19/18 Subjective:: This is an 83-year-old male with a past medical history of IDDM, CKD and hypertension who presented with hematemesis and melena. Patient was admitted for possible upper GI bleed. He did have acute blood loss anemia and required 2 units of blood transfusion. Patient underwent EGD and colonoscopy yesterday 08/18/18. He has not had recurrence of hematemesis or melena. No acute event overnight. No recurrence of bleeding. Hemoglobin has been stable. Discussed in length with patient's daughters (Keily and Leeanna) who are extremely apprehensive about discharging patient. Both verbalized that they are concerned that the source of bleeding was not identified. Discussed in length with patient and patient's daughters about surgical and GI input after discussing with Dr. Taylor and Dr. Piña. Patient has not had recurrence of bleeding and hemoglobin has been stable, the next step would be scheduling him for possible outpatient capsule endoscopy versus enteroscopy. I did reach out to [facility] and discussed the case in length with the tn stroenterologist, Dr. Vila who expressed that there is no need to transfer patient at this time as enteroscopy as he has not had recurrence of bleeding and his hemoglobin is stable. Dr. Vila recommends against enteroscopy as it is highly invasive and and instead recommends with pursuing an outpatient capsule endoscopy first. This was discussed in length with patient's daughter who is amenable to plan. Will continue to monitor for bleeding symptoms in the next 24 hours and recheck hemoglobin in the morning. Reason For Visit: GI BLEED Physical Exam Vital Signs: Temp Pulse Resp BP Pulse Ox 98.2 F 61 16 139/63 H 96 08/19/18 15:46 08/19/18 15:46 08/19/18 15:46 08/19/18 15:46 08/19/18 15:46 Intake & Output 08/18/18 08/19/18 08/20/18 06:59 06:59 06:59 Intake Total 1905 1650 Output Total 500 200 Balance 1405 1450 Weight 161 lb 9.581 oz 160 lb 14.999 oz General appearance: PRESENT: no acute distress, well-developed, well-nourished Head exam: PRESENT: atraumatic, normocephalic Eye exam: PRESENT: conjunctiva pink, EOMI, PERRLA. ABSENT: scleral icterus Ear exam: PRESENT: normal external ear exam Mouth exam: PRESENT: moist, tongue midline Neck exam: ABSENT: carotid bruit, JVD, lymphadenopathy, thyromegaly Respiratory exam: PRESENT: clear to auscultation choco. ABSENT: rales, rhonchi, wheezes Cardiovascular exam: PRESENT: RRR. ABSENT: diastolic murmur, rubs, systolic murmur Pulses: PRESENT: normal dorsalis pedis pul GI/Abdominal exam: PRESENT: normal bowel sounds, soft. ABSENT: distended, guarding, mass, organolmegaly, rebound, tenderness Rectal exam: PRESENT: deferred Neurological exam: PRESENT: alert, awake, oriented to person, oriented to place, oriented to time, CN II-XII grossly intact. ABSENT: motor sensory deficit Results Laboratory Results: 08/19/18 05:54 08/19/18 05:54 08/19/18 08/19/18 05:54 05:54 WBC 7.8 RBC 3.45 L Hgb 11.0 L Hct 31.8 L MCV 92 MCH 31.8 MCHC 34.5 RDW 13.2 Plt Count 239 Seg Neutrophils % 60.2 Lymphocytes % 21.7 Monocytes % 12.1 Eosinophils % 5.1 Basophils % 0.9 Absolute Neutrophils 4.7 Absolute Lymphocytes 1.7 Absolute Monocytes 0.9 Absolute Eosinophils 0.4 Absolute Basophils 0.1 Sodium 140.2 Potassium 4.3 Chloride 108 H Carbon Dioxide 23 Anion Gap 9 BUN 22 H Creatinine 1.60 H Est GFR ( Amer) 50 L Est GFR (Non-Af Amer) 41 L Glucose 134 H Calcium 9.0 Magnesium 2.0 Total Bilirubin 0.4 AST 45 ALT 39 Alkaline Phosphatase 46 Total Protein 5.9 L Albumin 3.3 L 08/14/18 15:49 Blood Blood Culture - Final NO GROWTH IN 5 DAYS 08/14/18 15:49 Blood Blood Culture - Final NO GROWTH IN 5 DAYS 08/15/18 05:02 NT-Pro-B Natriuret Pep 458 H Impressions: Acute Abdomen Series 08/14/18 10:08 IMPRESSION: NO RADIOGRAPHIC EVIDENCE FOR ACUTE ABDOMINAL DISEASE. Abdomen Ultrasound 08/19/18 00:00 IMPRESSION: No acute findings. Fatty liver. Right renal cysts. Assessment & Plan - Diagnosis (1) Acute GI bleeding Is this a current diagnosis for this admission?: Yes Plan: S/P 2 u of pRBC. S/P EGD and colonoscopy on 08/19/18 both of which were unremarkable. As mentioned, discussed in length with patient's daughters (Keily and Leeanna) who are extremely apprehensive about discharging patient. Both verbalized that they are concerned that the source of bleeding was not identified. Discussed possible other cause of bleed like AVMs. Discussed in length with patient and patient's daughters about surgical and GI input after discussing with Dr. Taylor and Dr. Piña. Patient has not had recurrence of bleeding and hemoglobin has b een stable, the next step would be scheduling him for possible outpatient capsule endoscopy versus enteroscopy. I did reach out to [facility] and discussed the case in length with the senior field engineer, Dr. Vila who expressed that there is no need to transfer patient at this time as enteroscopy as he has not had recurrence of bleeding and his hemoglobin is stable. Dr. Vila recommends against enteroscopy as it is highly invasive and and instead recommends with pursuing an outpatient capsule endoscopy first. This was discussed in length with patient's daughter who is amenable to plan. Will continue to monitor for bleeding symptoms in the next 24 hours and recheck hemoglobin in the morning. (2) Acute kidney injury superimposed on CKD Is this a current diagnosis for this admission?: Yes Plan: Likely prerenal. Creatinine did improve significantly but slightly went up to 1.6 today. Patient is oral intake. Will repeat BMP tomorrow morning. - Time Time Spent with patient: 25-34 minutes
[2018-08-19] MEDS: INSULIN LISPRO 100 UNIT/ML 3 ML VIAL SUBCUT SCH (21:40)
[2018-08-19] MEDS: INSULIN GLARGINE,HUM.REC.ANLOG 300 UNIT/3 ML INSULN.PEN SUBCUT SCH (21:41)
[2018-08-19] MEDS: SIMVASTATIN 10 MG TABLET PO SCH (21:42)
[2018-08-20] MEDS: LEVOTHYROXINE SODIUM 0.025 MG TABLET PO SCH (05:15)
[2018-08-20 06:44] LABS: ABSOLUTE BASOPHILS # (AUTO) 0.1 10^3/uL (0.0-0.2); ABSOLUTE EOSINOPHILS # (AUTO) 0.6 10^3/uL (0.0-0.6); ABSOLUTE NEUT (AUTO) 4.6 10^3/uL (1.7-8.2); BASOPHILS % (AUTO) 0.7 % (0-2); EOSINOPHILS % (AUTO) 7.5 % (0-6); HEMATOCRIT 30.1 % (37.9-51.0); HEMOGLOBIN 10.7 g/dL (13.5-17.0); MEAN CORPUSCULAR HEMOGLOBIN 32.9 pg (27.0-33.4); MEAN CORPUSCULAR HGB CONC 35.4 g/dL (32.0-36.0); MEAN CORPUSCULAR VOLUME 93 fl (80-97); MONOCYTES % (AUTO) 12.4 % (3-13); PLATELET COUNT 256 10^3/uL (150-450); RED BLOOD COUNT 3.25 10^6/uL (4.35-5.55); RED CELL DISTRIBUTION WIDTH 13.5 % (11.5-14.0); SEGMENTED NEUTROPHILS % (AUTO) 55.4 % (42-78); TOTAL CELLS COUNTED % (AUTO) 100 %; WHITE BLOOD COUNT 8.3 10^3/uL (4.0-10.5)
[2018-08-20 07:09] LABS: ANION GAP 10 (5-19); BLOOD UREA NITROGEN 25 mg/dL (7-20); CARBON DIOXIDE 21 mmol/L (22-30); CHLORIDE 108 mmol/L (98-107); GLUCOSE 135 mg/dL (75-110); POTASSIUM 4.1 mmol/L (3.6-5.0); SODIUM 138.7 mmol/L (137-145)
[2018-08-20] MEDS: INSULIN LISPRO 100 UNIT/ML 3 ML VIAL SUBCUT SCH ×2 (08:54→13:00)
[2018-08-20] MEDS: CARVEDILOL 12.5 MG TABLET PO SCH (09:01)
[2018-08-20] MEDS: CHOLECALCIFEROL (D3) 1,000 UNIT TABLET PO SCH (09:01)
[2018-08-20] MEDS: FAMOTIDINE 20 MG TABLET PO SCH (09:01)
[2018-08-20] MEDS: LISINOPRIL 10 MG TABLET PO SCH (09:02)
[2018-08-20] MEDS: FEBUXOSTAT 40 MG TABLET PO SCH (09:05)
[2018-08-20] MEDS ORDERED: MAGNESIUM CITRATE 296 ML BOTTLE PO ONE (10:18)
[2018-08-20 12:58] VITALS: BP 152/60
[2018-08-20] MEDS: SITAGLIPTIN PHOSPHATE 50 MG TABLET PO SCH (13:10)
[2018-08-20] MEDS ORDERED: SENNOSIDES/DOCUSATE 8.6-50 MG 1 EACH TABLET PO ONE (13:30)
[2018-08-20] MEDS ORDERED: BISACODYL 10 MG SUPP.RECT PR ONE (14:00)
--- NOTE | 2018-08-21 18:31 | PDOC DISCHARGE SUMMARY ---
General - Admit/Disc Date/PCP Admission Date/Primary Care Provider: 08/14/18 12:21 RICCI LAM MD Discharge Date: 08/20/18 - Discharge Diagnosis (1) Acute GI bleeding Is this a current diagnosis for this admission?: Yes (2) Acute kidney injury superimposed on CKD Is this a current diagnosis for this admission?: Yes - Additional Information Resuscitation Status: Full Code Discharge Diet: As Tolerated Discharge Activity: Activity As Tolerated Prescriptions: Carvedilol [Coreg 12.5 mg Tablet] 12.5 mg PO Q12 #60 tablet Furosemide [Lasix 20 mg Tablet] 20 mg PO ASDIR #30 tablet Home Medications: Alprazolam [Xanax 0.25 mg Tablet] 0.25 mg PO Q12HP PRN 08/14/18 Cholecalciferol (Vitamin D3) [D3-2000] 2,000 unit PO DAILY 08/14/18 Febuxostat [Uloric 40 mg Tablet] 40 mg PO DAILY 08/14/18 Fexofenadine HCl [Allergy Relief] 180 mg PO DAILY 08/14/18 Flunisolide [Nasarel] 2 spray NASL BID 08/14/18 Glimepiride [Amaryl] 2 mg PO QAM 08/14/18 Hydrocortisone/Pramoxine [Proctofoam-Hc 1%-1% Foam] [address] DAILYP PRN 08/14/18 Isosorbide Mononitrate [Imdur 30 mg Tablet.er] 30 mg PO DAILY 08/14/18 Levothyroxine Sodium [Synthroid 0.025 mg Tablet] 0.025 mg PO Q6AM 08/14/18 Lisinopril [Prinivil 40 mg Tablet] 40 mg PO Q12 08/14/18 Multivitamin [Tab-A-Marlys (Multiple Vitamin) Tablet] 1 tab PO DAILY 08/14/18 Mupirocin [Bactroban 2% Ointment 22 gm] 1 applic TOP TID 08/14/18 Simvastatin [Zocor 20 mg Tablet] 20 mg PO QHS 08/14/18 Sitagliptin Phosphate [Januvia] 100 mg PO DAILY 08/14/18 Carvedilol [Coreg 12.5 mg Tablet] 12.5 mg PO Q12 #60 tablet 08/20/18 Furosemide [Lasix 20 mg Tablet] 20 mg PO ASDIR #30 tablet 08/20/18 Insulin Degludec [Tresiba Flextouch U-200] 16 unit SQ QHS #0 08/20/18 History of Present Illness History of Present Illness: Admitting hospitalist's H&P: JACKIE ESCOBEDO is a 83 year old male with a history of hypertension, diabetes, CHF, CKD, presented to ED complaining of sore breath, nausea, hematemesis, and melena. Patient said he was doing fine yesterday but overnight he was not feeling very well and has checked checked his blood pressure which was low and checked his blood glucose level which was 387. He went to sleep but it is light [employer] when he woke up he started having shortness of breath, feeling nauseous associated with several episodes of hematemesis and bloody diarrhea. He denies any chest pain, abdominal pain, urinary symptoms, recent travel, sick contacts. Today he ate at [employer] where he frequently goes. ED his blood glucose level was 556, anion gap within normal limits, creatinine 2.47, WBC of 15,000 without any bandemia. A per HPI. As per HPI as per HPI KUB was done without any radiographic evidence of acute disease. Hospital Course Hospital Course: This is an 83-year-old male with a past medical history of IDDM, CKD and hypertension who presented with hematemesis and melena. Patient was admitted for possible upper GI bleed. He did have acute blood loss anemia and required 2 units of blood transfusion. Patient underwent EGD and colonoscopy yesterday 08/18/18. He has not had recurrence of hematemesis or melena. He also had pre renal LISSA. His hemoglobin remain stable. Discussed in length with patient's daughters (Keily and Leeanna) who are extremely apprehensive about discharging patient. Both verbalized that they are concerned that the source of bleeding was not identified. Discussed in length with patient and patient's daughters about josee gical and GI input after discussing with Dr. Taylor and Dr. Piña. Patient has not had recurrence of bleeding and hemoglobin has been stable, the next step would be scheduling him for possible outpatient capsule endoscopy versus enteroscopy. I did reach out to [facility] and discussed the case in length with the catholic priest, Dr. Vila who expressed that there is no need to transfer patient at this time for enteroscopy as he has not had recurrence of bleeding and his hemoglobin is stable. Dr. Vila recommends against enteroscopy as it is highly invasive and and instead recommends with pursuing an outpatient capsule endoscopy first. This was discussed in length with patient's daughter who is amenable to plan. He was monitored for another 24 hrs and his Hb remain stable. He had a regular BM which was non-bloody and non-tarry. His antihypertensives were also revised to optimize blood pressure control. He was on chlorthalidone, clonidine prn, lisinopril and aldactone at home. He also takes Lasix 40 mg 3 a week. His BP were at goal with lisinopril and Coreg. His Lasix was decreased to 20 mg 3x/week due to recent LISSA. His creatinine did significantly improve. His Hba1c was 10. Home medication list his Tresiba as 20 u daily but daughter says he only uses 14 u daily. They were recommended to increase this to 16 u daily and continue to log his sugars with appropriate adjustment on ff-up with PCP. Young was given a confirmed appt with [facility] on Saturday for capsule endoscopy. Physical Exam Vital Signs: Temp Pulse Resp BP Pulse Ox 97.9 F 66 16 152/60 H 99 08/20/18 15:24 08/20/18 15:24 08/20/18 15:24 08/20/18 15:24 08/20/18 15:24 Intake & Output 08/20/18 08/21/18 08/22/18 06:59 06:59 06:59 Intake Total 939 480 Balance 939 480 Weight 169 lb 8.568 oz General appearance: PRESENT: no acute distress, well-developed, well-nourished Head exam: PRESENT: atraumatic, normocephalic Eye exam: PRESENT: conjunctiva pink, EOMI, PERRLA. ABSENT: scleral icterus Ear exam: PRESENT: normal external ear exam Mouth exam: PRESENT: moist, tongue midline Neck exam: ABSENT: carotid bruit, JVD, lymphadenopathy, thyromegaly Respiratory exam: PRESENT: clear to auscultation choco. ABSENT: rales, rhonchi, wheezes Cardiovascular exam: PRESENT: RRR. ABSENT: diastolic murmur, rubs, systolic murmur Pulses: PRESENT: normal dorsalis pedis pul GI/Abdominal exam: PRESENT: normal bowel sounds, soft. ABSENT: distended, guarding, mass, organolmegaly, rebound, tenderness Rectal exam: PRESENT: deferred Neurological exam: PRESENT: alert, awake, oriented to person, oriented to place, oriented to time, oriented to situation, CN II-XII grossly intact. ABSENT: motor sensory deficit Results Laboratory Results: 08/20/18 05:45 08/20/18 05:45 08/15/18 05:02 NT-Pro-B Natriuret Pep 458 H Impressions: Acute Abdomen Series 08/14/18 10:08 IMPRESSION: NO RADIOGRAPHIC EVIDENCE FOR ACUTE ABDOMINAL DISEASE. Abdomen Ultrasound 08/19/18 00:00 IMPRESSION: No acute findings. Fatty liver. Right renal cysts. Qualifiers - * PATIENT BEING DISCHARGED WITH ANY OF THE FOLLOWING DIAGNOSIS: No
== END 2018-08-20 16:00 | disposition home or self-care (01) | DRG 378 ==
LOC: ER 08:33 → EH 12:21 → 4S 23:00
PROVIDERS: ADMIT Internal Medicine; ATTEND Internal Medicine
PROC: 30233N1 Transfusion of Nonautologous Red Blood Cells into Peripheral Vein, Percutaneous Approach (ICD-10-PCS; principal; 2018-08-15)
PROC: 0DJD8ZZ Inspection of Lower Intestinal Tract, Via Natural or Artificial Opening Endoscopic (ICD-10-PCS; 2018-08-18)
PROC: 0DJ08ZZ Inspection of Upper Intestinal Tract, Via Natural or Artificial Opening Endoscopic (ICD-10-PCS; 2018-08-18 13:30)
DX: K92.2 Gastrointestinal hemorrhage, unspecified (principal); N17.9 Acute kidney failure, unspecified; I13.0 Hypertensive heart and chronic kidney disease with heart failure and stage 1 through stage 4 chronic kidney disease, or unspecified chronic kidney disease; R71.0 Precipitous drop in hematocrit; E87.5 Hyperkalemia; N18.3 Chronic kidney disease, stage 3 (moderate); I50.9 Heart failure, unspecified; E11.65 Type 2 diabetes mellitus with hyperglycemia; E11.22 Type 2 diabetes mellitus with diabetic chronic kidney disease; F41.1 Generalized anxiety disorder; Z79.84 Long term (current) use of oral hypoglycemic drugs; Z79.4 Long term (current) use of insulin; Z79.899 Other long term (current) drug therapy
CPT/HCPCS: 36415; 36430; 43235; 45378; 74022; 76705; 80048; 80053; 81001; 82803; 82962; 83036; 83735; 83880; 85025; 85610; 85730; 86850; 86900; 86901; 86920; 87040; 93005; 93010; 93306; 93976; 96365; 99285; J0171; J0360; J0610; J1200; J1610; J1815; J2250; J2310; J2405; J3010; J3490; J7030; J7620; P9016; S0164

== ENCOUNTER → 2019-08-18 | Outpatient (CLI) | payer MEDICARE, MEDICAID ==
--- NOTE | 2019-08-18 22:01 | RADIOLOGY REPORT (SQ) ---
EXAM DESCRIPTION: US EXTREMITY VEINS BILATERAL COMPLETED DATE/TME: 08/18/2019 00:00 CLINICAL HISTORY: 84 years, Male, BLE PAIN/ SWELLING COMPARISON: None. TECHNIQUE: Multiplanar grayscale color and spectral Doppler LIMITATIONS: None. FINDINGS: 58 images, bilateral No compressibility, grayscale, and augmentation of the common femoral, superficial femoral, and popliteal veins. Visualized tibial vessels are normal.. No evidence of intraluminal thrombus within the visualized portion of the deep venous system of the tibial system. Visualized portions superficial venous system is also patent IMPRESSION: No evidence of deep venous thrombosis common femoral vein through popliteal. copyright 2010 [employer]- All Rights Reserved
== END ==
LOC: SP 16:56
PROVIDERS: ATTEND Internal Medicine Nephrology
DX: R60.9 Edema, unspecified (principal); I12.9 Hypertensive chronic kidney disease with stage 1 through stage 4 chronic kidney disease, or unspecified chronic kidney disease; N18.3 Chronic kidney disease, stage 3 (moderate)
CPT/HCPCS: 93970

== ENCOUNTER 2019-12-08 06:36 | Emergency (ER) | payer MEDICARE, MEDICAID ==
--- NOTE | 2019-12-08 07:25 | ER Document Report ---
Entered by RUPAL MCKEE SCRIBE 12/08/19 0702 Acting as scribe for:JASWANT MCCLELLAN MD ED Respiratory Problem - General Chief Complaint: Breathing Difficulty Stated Complaint: DIFFICULTY BREATHING Time Seen by Provider: 12/08/19 06:45 Primary Care Provider: RICCI LAM MD [Primary Care Provider] - Follow up as needed Mode of Arrival: Ambulatory Information source: Patient Notes: This 84 year old male patient presents to the emergency department today with complaints of shortness of breath. This shortness of breath began last night at around 9:00 PM but he did not tell his daughter about the shortness of breath until this morning. The patient's shortness of breath becomes worse when lying flat. Patient has a history of CHF. TRAVEL OUTSIDE OF THE [place] IN LAST 30 DAYS: No - Related Data Allergies/Adverse Reactions: Penicillins Allergy (Severe, Verified 12/08/19 07:41) Anaphylaxis Past Medical History - General Information source: [facility] Records - Social History Smoking Status: Never Smoker Cigarette use (# per day): No Frequency of alcohol use: None Drug Abuse: None Lives with: Family Family History: Reviewed & Not Pertinent - Past Medical History Cardiac Medical History: Reports: Hx Congestive Heart Failure, Hx Coronary Artery Disease, Hx Hypercholesterolemia, Hx Hypertension Pulmonary Medical History: Reports: Hx Sleep Apnea Endocrine Medical History: Reports: Hx Diabetes Mellitus Type 2 Renal/ Medical History: Reports: Hx Renal Insufficiency Musculoskeletal Medical History: 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, and fingers, Reports Hx Gout Past Surgical History: Reports: Other - Eyelid surgery - Immunizations Hx Diphtheria, Pertussis, Tetanus Vaccination: Yes Hx Pneumococcal Vaccination: 05/08/13 Review of Systems - Review of Systems Constitutional: No symptoms reported EENT: No symptoms reported Cardiovascular: No symptoms reported Respiratory: See HPI, Short of breath Gastrointestinal: No symptoms reported Genitourinary: No symptoms reported Male Genitourinary: No symptoms reported Musculoskeletal: No symptoms reported Skin: No symptoms reported Hematologic/Lymphatic: No symptoms reported Neurological/Psychological: No symptoms reported -: Yes All other systems reviewed and negative Physical Exam - Vital signs Vitals: Temp Pulse Resp BP Pulse Ox 98.5 F 72 18 168/68 H 97 12/08/19 06:50 12/08/19 06:50 12/08/19 06:50 12/08/19 06:50 12/08/19 06:50 - Notes Notes: Physical Exam: General: Alert, appears mildly short of breath. HEENT: Normocephalic. Atraumatic. PERRL. Extraocular movements intact. Oropharynx clear. Neck: Supple. Non-tender. Respiratory: Mild respiratory distress. Mildly tachypneic, bibasilar rales. Cardiovascular: Regular rate and rhythm. Abdominal: Normal Inspection. Non-tender. No distension. Normal Bowel Sounds. Back: No gross abnormalities. Extremities: Moves all four extremities. Upper extremities: Normal inspection. Normal ROM. Lower extremities: Normal inspection. No edema. Normal ROM. Neurological: Normal cognition. AAOx4. Normal speech. Psychological: Normal affect. Normal Mood. Skin: Warm. Dry. Normal color. Course - Re-evaluation Re-evalutation: 12/08/19 08:44 The patient's chest x-ray is unremarkable. Lab work is similarly unremarkable for this patient. His blood pressure is 139/70, pulse 76, room air oxygen saturation 100%. I discussed the case with Dr. Biswas who tells me that his pulmonary doctor had prescribed CPAP but the patient will not wear it. I talked with the patient's daughter who gives a history that this complaint of difficulty breathing has been going on for probably greater than a year. She states that when he feels like he is falling asleep he complains of difficulty breathing. This can occur trying to lay down or just sitting up in a chair. She said it has been going on for a few years but is getting worse. This week he has been complaining more than usual. She did call and make an appointment with his pulmonary doctor, but then he had her cancel the appointment because he stated he was feeling better. Discussing this case with Dr. Biswas and with the patient's daughter, I recommended that she go back to the pulmonary doctor and talk about using a nasal mask to see if you tolerate that, and that he be evaluated for anxiety disorder. - Vital Signs Vital signs: Temp Pulse Resp BP Pulse Ox 98.5 F 72 12 139/70 H 100 12/08/19 06:54 12/08/19 06:50 12/08/19 08:01 12/08/19 08:01 12/08/19 08:01 - Laboratory Result Diagrams: 12/08/19 07:25 12/08/19 07:25 Laboratory results interpreted by me: 12/08/19 12/08/19 07:25 07:44 Sodium 135.7 L Chloride 94 L Carbon Dioxide 32 H BUN 55 H Creatinine 2.37 H Est GFR ( Amer) 32 L Est GFR (MDRD) Non-Af 26 L Glucose 348 H Magnesium 2.5 H Creatine Kinase 300 H Urine Glucose (UA) >=500 H - Diagnostic Test Radiology reviewed: Image reviewed, Reports reviewed - Chest x-ray does not show acute cardiopulmonary process. Chronic atherosclerotic vascular disease. - EKG Interpretation by Me EKG shows normal: Sinus rhythm, [place], QRS Complexes, ST-T Waves. abnormal: Intervals - Borderline prolonged QT interval Rate: Normal - 70 Rhythm: NSR Discharge - Discharge Clinical Impression: Shortness of breath, Anxiety Condition: Stable Disposition: HOME, SELF-CARE Additional Instructions: Dyspnea, Nonspecific You were evaluated for shortness of breath, or dyspnea. Dyspnea has many causes, and some are more serious than others. Sometimes it's impossible to diagnose the cause of dyspnea with the tests that are available on an emergency basis. Based on our evaluation today, you do not need hospitalization now. We found no evidence of pneumonia, collapsed lung, blood clots in the lung, tumors, or heart failure. Causes of non-specific dyspnea can include asthma or bronchospasm, hyperventilation, emotional distress, heart disease, emphysema, fibrosis of the lung, and stiffness of the chest wall. In healthy individuals with a single episode, it's sometimes reasonable to do nothing but wait to see if the problem occurs again. Additional tests used to evaluate dyspnea can include cardiac stress testing, echocardiography, pulmonary function testing, CAT scan of the chest, bronchoscopy or pulmonary biopsy. Return if shortness of breath persists or worsens, or if you develop chest pain, fever, cough, confusion, or fainting. Your shortness of breath seems to be more of a problem when you are trying to fall asleep. I understand you are supposed to use CPAP, but did not tolerate the mask. Today your vital signs, oxygen saturation and your blood, and lab work are all unremarkable. Your chest x-ray does not show any heart failure or pneumonia today. I recommend that you follow-up with Dr. Gutierrez to discuss getting the nasal mask for your CPAP and see if you tolerate that better. You should also follow-up with Dr. Nuñez and discuss the symptoms you are feeling when you are trying to go to sleep. This may be more of an anxiety issue causing you to feel like you are having trouble breathing when you actually are breathing fine. RETURN TO THE EMERGENCY ROOM IF ANY NEW OR WORSENING SYMPTOMS. Referrals: RICCI LAM MD [Primary Care Provider] - Follow up in 3-5 days JOSE MARIA GUTIERREZ MD [COMMUNITY BASED STAFF] - Follow up in 3-5 days I personally performed the services described in the documentation, reviewed and edited the documentation which was dictated to the scribe in my presence, and it accurately records my words and actions.
[2019-12-08 07:47] LABS: ABSOLUTE BASOPHILS # (AUTO) 0.1 10^3/uL (0.0-0.2); ABSOLUTE EOSINOPHILS # (AUTO) 0.3 10^3/uL (0.0-0.6); ABSOLUTE LYMPHOCYTES (AUTO) 1.8 10^3/uL (0.5-4.7); ABSOLUTE MONOCYTES (AUTO) 0.6 10^3/uL (0.1-1.4); ABSOLUTE NEUT (AUTO) 3.6 10^3/uL (1.7-8.2); EOSINOPHILS % (AUTO) 4.5 % (0-6); HEMATOCRIT 42.1 % (37.9-51.0); HEMOGLOBIN 14.6 g/dL (13.5-17.0); LYMPHOCYTES % (AUTO) 27.7 % (13-45); MEAN CORPUSCULAR HEMOGLOBIN 32.2 pg (27.0-33.4); MEAN CORPUSCULAR HGB CONC 34.7 g/dL (32.0-36.0); MEAN CORPUSCULAR VOLUME 93 fl (80-97); MONOCYTES % (AUTO) 10.1 % (3-13); PLATELET COUNT 232 10^3/uL (150-450); RED BLOOD COUNT 4.54 10^6/uL (4.35-5.55); RED CELL DISTRIBUTION WIDTH 11.9 % (11.5-14.0); SEGMENTED NEUTROPHILS % (AUTO) 56.7 % (42-78); TOTAL CELLS COUNTED % (AUTO) 100 %; WHITE BLOOD COUNT 6.4 10^3/uL (4.0-10.5)
--- NOTE | 2019-12-08 07:52 | RADIOLOGY REPORT (SQ) ---
EXAM DESCRIPTION: XR CHEST 1 VIEW COMPLETED DATE/TME: 12/08/2019 06:58 CLINICAL HISTORY: 84 years Male, SOB COMPARISON: 12/25/17 NUMBER OF VIEWS/TECHNIQUE: 1/AP FINDINGS: Adequate lung volume, clear parenchyma, normal cardiac silhouette, and intact bony thorax.Atherosclerotic vascular disease. IMPRESSION: No acute cardiopulmonary findings.
[2019-12-08 08:00] LABS: ALBUMIN 4.2 g/dL (3.5-5.0); ALKALINE PHOSPHATASE 103 U/L (38-126); ANION GAP 10 (5-19); ASPARTATE AMINO TRANSFERASE 28 U/L (17-59); BILIRUBIN,TOTAL 0.6 mg/dL (0.2-1.3); BLOOD UREA NITROGEN 55 mg/dL (7-20); CALCIUM 9.3 mg/dL (8.4-10.2); CARBON DIOXIDE 32 mmol/L (22-30); CHLORIDE 94 mmol/L (98-107); CREATINE KINASE 300 U/L (55-170); GLUCOSE 348 mg/dL (75-110); POTASSIUM 4.1 mmol/L (3.6-5.0); TOTAL PROTEIN 7.6 g/dL (6.3-8.2)
[2019-12-08 08:01] LABS: APPEARANCE,URINE CLEAR; BILIRUBIN,URINE NEGATIVE (NEGATIVE); COLOR,URINE STRAW; GLUCOSE, URINE >=500 mg/dL (NEGATIVE); KETONES,URINE NEGATIVE (NEGATIVE); LEUKOCYTE ESTERASE,URINE NEGATIVE (NEGATIVE); NITRITE,URINE NEGATIVE (NEGATIVE); PROTEIN,URINE NEGATIVE (NEGATIVE); URINE SPECIFIC GRAVITY 1.006; UROBILINOGEN,URINE NEGATIVE mg/dL (<2.0)
[2019-12-08 08:12] LABS: NT PRO BNP 163 pg/mL (<450)
[2019-12-08 08:16] LABS: TROPONIN I < 0.012 ng/mL
[2019-12-08 09:11] VITALS: BP 153/63
--- NOTE | 2019-12-08 19:42 | EKG REPORT ---
SEVERITY:- BORDERLINE ECG - SINUS RHYTHM BORDERLINE PROLONGED QT INTERVAL : Confirmed by: Rajinder Ritter 08-Dec-2019 19:42:02
== END 2019-12-08 09:11 | disposition home or self-care (01) ==
LOC: ER 06:36
DX: R06.02 Shortness of breath (principal); F41.9 Anxiety disorder, unspecified; R06.00 Dyspnea, unspecified; I50.9 Heart failure, unspecified; I25.10 Atherosclerotic heart disease of native coronary artery without angina pectoris; E78.00 Pure hypercholesterolemia, unspecified; I11.0 Hypertensive heart disease with heart failure; E11.9 Type 2 diabetes mellitus without complications; Z88.0 Allergy status to penicillin
CPT/HCPCS: 36415; 71045; 80053; 81001; 82550; 83735; 83880; 84484; 85025; 87040; 93005; 93010; 99285